=== PATIENT | male | born 1950 | race Caucasian/White ===

== ENCOUNTER 2021-06-07 09:21 | Emergency (ER) | payer MEDICARE, OTHER, SELFPAY ==
[2021-06-07 09:23] VITALS: BP 143/49; PULSE 54; RESP 16; TEMP 36.1; O2SAT 98; BMI 19.1
--- NOTE | 2021-06-07 09:58 | ED.VIS.LOWEX ---
HPI History of Present Illness Chief Complaint: Lower Extremity Injury Informant: patient Narrative Narrative: Patient's been having right knee pain for about 2 weeks. It started after he was working in the attic. He was crawling around on hands and knees. He tried to cushion the knee but it did not always work. He had no specific injury trauma or fall though. Since then he has had some swelling and discomfort. It is not red or hot. He has never had fevers or chills. He just felt a little bit lightheaded this morning but that was very transient. He feels fine now. It only occurred when he first got up and put weight on the knee. He has no chronic medical conditions and takes no routine medicines. He did take Tylenol which helped a bit. No recent infections. 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 He states crawling on his knees always bother them. No history documented of gout but he states sometimes he has had swollen uncomfortable big toes but has never had them evaluated. PFSH PFSH Home Medications naproxen 500 mg PO BID #14 tab 06/07/21 [Rx Last Taken Unknown] Allergy/AdvReac Type Severity Reaction Status Date / Time No Known Allergies Allergy Verified 06/07/21 09:21 ROS ROS ED Constitutional Constitutional ED: Denies chills, fever(s), subjective or sweats ENT ENT ED: Denies rhinorrhea Cardiovascular Cardiovascular: Denies chest pain Respiratory/Chest Respiratory/Chest: Denies cough Gastrointestinal Gastrointestinal: Denies nausea or vomiting Musculoskeletal Musculoskeletal: Reports arthralgias Integumentary Denies abscess, Abrasions or rash Neurologic Neurologic: Denies headache(s) Psychiatric Psychiatric: Denies depression Endocrine Endocrinology: Denies polydipsia or polyuria Hematologic/Lymphatic Hematologic/Lymphatic: Denies easy bleeding or easy bruising Allergic/Immunologic Allergic/Immunologic ED: Denies mouth swelling or urticaria EXAM Physical Exam Const Vital Signs: 06/07/21 09:23 06/07/21 10:01 Temperature 96.9 F L 96.9 F L Temperature Source Temporal Temporal Pulse Rate 54 L 54 L Respiratory Rate 16 16 Blood Pressure 143/49 H 143/49 H Blood Pressure Mean 80 80 Pulse Ox 98 98 Oxygen Delivery Method Room Air Room Air Positive well nourished and well developed General Appearance ED: well developed and NAD HEENT normocephalic Chest Wall inspection of chest normal Resp normal respiratory effort and clear to auscultation bilaterally Cardio regular rate and regular rhythm Extremity Extremity Narrative: There is a very small effusion of the right knee. But there is no warmth or erythema. I can put the knee through range of motion without any discomfort. There is no indication of infection whatsoever. Neuro oriented x3 Sensorium / Orientation: alert Skin no wounds Lesions: no lesions Rashes: no rashes Trauma: Negative for abrasion, laceration or puncture MDM MDM MDM Narrative Medical decision making narrative: X-ray shows diffuse arthritis. There is also indication of chondrocalcinosis small joint effusion that might be some indication of pseudogout. Clinically there is no indication of infection. He has a small effusion but there is no erythema warmth or pain with range of motion. I think this is likely a reactive arthritis. I do not think he needs the knee to be aspirated. I do not think antibiotics are indicated. X-rays show signs of chondrocalcinosis and stratus. This brings up the question of pseudogout. Again, I do not think this is infected. Even despite his discomfort he was able to run 10 miles this past week without difficulty. We will put him on a short course of Naprosyn. If he has any GI upset he should stop. If it is not better he might need steroid treatment. Again, this is not appropriate to do an aspiration at this time. He will follow up with his physicians. If he does get redness more swelling fevers or increasing pain he may need to return. I also printed off information about pseudogout from the Internet for the patient. Radiography Diagnostic Testing: Clinical Impression(s) from Imaging Studies Knee X-Ray 06/07/21 10:05 IMPRESSION: Osteopenia with mild tricompartmental arthrosis. Chondrocalcinosis. Small joint effusion. Electronically Signed: Chance Richey MD at 10:50 EST , Service support , Discharge Plan Triage Chief Complaint: Lower Extremity Injury ED Provider: Thai Loredo Dx/Rx/DC Orders Clinical Impression: Acute pain of right knee, Chondrocalcinosis articularis Instructions: ED Knee Pain of Uncertain Cause Prescriptions: New naproxen 500 MG tablet 500 mg PO BID Qty: 14 RF: 0 Primary Care Provider: Vinay Whittaker Referrals: Vinay Whittaker MD [Primary Care Provider] - 3-5 Days if not improving Disposition Disposition: Home, Self Care
[2021-06-07 10:01] VITALS: BP 143/49; PULSE 54; RESP 16; TEMP 36.1; O2SAT 98
--- NOTE | 2021-06-07 10:05 | RAD_ITS ---
STUDY: X-RAY - RIGHT KNEE REASON FOR EXAM: Male, 70 years old. Medial knee pain. No known injury. TECHNIQUE: 4 view(s) of the knee. COMPARISON: None. FINDINGS: Osteopenia. Mild medial compartmental arthrosis with small osteophytes. Mild lateral compartmental arthrosis. Mild arthrosis of the patellofemoral compartment without osteophytes. Chondrocalcinosis. Small joint effusion. RAD/Knee 4 or More Views IMPRESSION: Osteopenia with mild tricompartmental arthrosis. Chondrocalcinosis. Small joint effusion. Electronically Signed: Chance Richey MD at 10:50 EST , Service support ,
[2021-06-07 11:36] VITALS: BP 129/74; PULSE 62; RESP 15; O2SAT 98
== END 2021-06-07 11:40 | disposition home or self-care (01) ==
PROVIDERS: Emergency Provider Emergency Medicine; PCP Family Medicine
DX: M11.261 Other chondrocalcinosis, right knee (principal); M25.461 Effusion, right knee; M85.80 Other specified disorders of bone density and structure, unspecified site; Z79.1 Long term (current) use of non-steroidal anti-inflammatories (NSAID)
CPT/HCPCS: 73564; 99282

== ENCOUNTER → 2024-01-27 | Outpatient (CLI) | payer MEDICARE, OTHER, SELFPAY ==
--- NOTE | 2024-01-27 14:08 | VDLE_ITS ---
Reason For Study: RLE SWELLING RIGHT LEFT CFV is compressible, spontaneous, phasic, GSV is normal. competent and demonstrates normal CFV is compressible, spontaneous, phasic, augmentation. competent, and demonstrates normal Procedure augmentation. This is a venous duplex using B-mode, color FV is compressible, spontaneous, phasic, flow and spectral Doppler. competent and demonstrates normal Exam performed in department. augmentation. A preliminary report was called and/or faxed POP V is compressible, spontaneous, phasic, to Ally Brunner ORNAMENTER @ [phone] @ 14:45 competent and demonstrates normal pm. augmentation. Images # 17 through #23 are of the left pop T/P Trunk is compressible. fossa space. PTV is compressible. LT PerV is compressible. NONVASCULAR structure noted in the LEFT POP FOSSA SPACE measuring 5.48cm x 2.40cm in transverse. VL/Venous Duplex US, Unilateral Interpretation Summary There is no evidence of left lower extremity deep vein thrombosis. Left great s aphenous vein appears patent and compressible segmentally. 1.15 x 2.39 x 5.48 cm left popliteal space non vascular structure. This not a simple cyst. Clinical correlation would be appropriate. Normal flow patterns right common femoral vein Ordering Physician: Ally Brunner Referring Physician: Vinay Whittaker Performed By: Susanne Floyd, EL, RVT
== END | disposition home or self-care (01) ==
LOC: CVS 14:06
PROVIDERS: PCP Family Medicine; Referring Provider Nurse Practitioner Family; Visit Provider Nurse Practitioner Family
DX: M79.662 Pain in left lower leg (principal); M79.89 Other specified soft tissue disorders
CPT/HCPCS: 93971

== ENCOUNTER → 2025-04-09 | Outpatient (CLI) | payer MEDICARE, OTHER, SELFPAY ==
--- OUTSIDE RECORDS SUMMARY | 2024-08-16 12:55 | XMS RPT_ITS ---
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 RANGE REFERENCE UNITS LAB 2885-2(LOINC) Prot SerPl-mCnc 7.1 6.3-8.0 g/dL LAB 1751-7(LOINC) Albumin SerPl-mCnc 3.9 3.9-4.9 g/dL LAB 35840-5(LOINC) Calcium SerPl-mCnc 8.9 8.5-10.2 mg/dL LAB 1975-2(LOINC) Bilirub SerPl-mCnc 0.6 0.2-1.3 mg/dL LAB 6768-6(LOINC) ALP SerPl-cCnc 117 High 38-113 U/L LAB 1920-8(LOINC) AST SerPl-cCnc 20 14-40 U/L LAB 1742-6(LOINC) ALT SerPl-cCnc 14 10-54 U/L LAB 2345-7(LOINC) Glucose SerPl-mCnc 88 74-99 mg/dL Result Comment: The [place] [employer] (ADA) provides guidance for cutoff values for fasting glucose and random glucose. The ADA defines fasting as no caloric intake for at least 8 hours. Fasting plasma glucose results between 100 to 125 mg/dL indicate increased risk for diabetes (prediabetes). Fasting plasma glucose results greater than or equal to 126 mg/dL meet the criteria for diagnosis of diabetes. In the absence of unequivocal hyperglycemia, results should be confirmed by repeat testing. In a patient with classic symptoms of hyperglycemia or hyperglycemic crisis, random plasma glucose results greater than or equal to 200 mg/dL meet the criteria for diagnosis of diabetes. Reference: Standards of Medical Care in Diabetes 2016, [place] [employer]. Diabetes Care. 2016.39(Suppl 1). LAB 3094-0(LOINC) BUN SerPl-mCnc 18 9-24 mg/ dL LAB 2160-0(LOINC) Creat SerPl-mCnc 0.92 0.73-1.22 mg/dL LAB 2951-2(LOINC) Sodium SerPl-sCnc 137 136-144 mmol/L LAB 2823-3(LOINC) Potassium SerPl-sCnc 4.3 3.7-5.1 mmol/L LAB 2075-0(LOINC) Chloride SerPl-sCnc 101 98-107 mmol/L LAB 2028-9(LOINC) CO2 SerPl-sCnc 28 22-30 mmo l/L LAB 08914-6(LOINC) Anion Gap SerPl-sCnc 8 8-15 mmol/L LAB 98856-0(LOINC) Creatinine + eGFR Pnl SerPlBld 88 >=60 mL/min/1 .73m??? Result Comment: Estimated Gl omerular Filtration Rate (eGFR) is calculated using the 2020 CKD-EPI creatinine equation. This equation utilizes serum creatinine, sex, and age as parameters. The creatinine assay has traceable calibration to isotope dilution-mass spectrometry. Refer to KDIGO guidelines for clinical interpretation. In patients with unstable renal function, e.g. those with acute kidney injury, the eGFR may not accurately reflect actual GFR. Performed By: #### 87395-3, 43590-7 #### [facility] CLIA [id number] [address] [place] [address] [place] LIPID 1996 PNL SERPL Collected: 024 8:33 AM Status: F Source: [facility] Order Comment: Specimen Type : BLOOD SPECIMEN Ordering Facility: [facility] Address: [address] [place] [address] TYPE CODE TESTS RESULT OUT OF RANGE REFERENCE UNITS LAB 2093-3(LOINC) Cholest SerPl-mCnc 179 <200 mg/dL Result Comment: <200 mg/dL, Desirable 200-239 mg/dL, Borderline high >239 mg/dL, High LAB 2571-8(LOINC) Trigl SerPl-mCnc 59 <150 mg/dL Result Comment: <150 mg/dL, Normal 150-199 mg/dL, Borderline high 200-499 mg/dL, High >499 mg/dL, Very high LAB 2085-9(LOINC) HDLc SerPl-mCnc 56 >39 mg/dL Result Comment: 40-59 mg/dL, Acceptable >59 mg/dL, High: Negative risk factor for coronary heart disease <40 mg/dL, Low: Positive risk factor for coronary heart disease LAB 71955-5(LOINC) NonHDLc SerPl-mCnc 123 <130 mg/dL Result Comment: <130 mg/dL, Optimal 130-159 mg/dL, Near optimal/above optimal 160-189 mg/dL, Borderline high 190-219 mg/dL, High >219 mg/dL, Very high Secondary prevention optimal non HDL Cholesterol levels are recommended to be <100 mg/dL LAB FT FASTING TIME 12 hrs LAB 35635-3(LOINC) VLDLc SerPl Calc-mCnc 12 <30 mg/dL LAB 9830-1(LOINC) Cholest/HDLc SerPl 3.20 <5.10 LAB 2089-1(LOINC) LDLc SerPl-mCnc 111 High <100 mg/dL Result Comment: <100 mg/dL, Optimal 100-129 mg/dL, Near optimal/above optimal 130-159 mg/dL, Borderline high 160-189 mg/dL, High >189 mg/dL, Very high Secondary prevention optimal LDL Cholesterol levels are recommended to be < 70 mg/dL LAB 59546-8(LOINC) LDLc/HDLc SerPl 1.98 <2.54 Result Comment: Reference: 1. National Cholesterol Education Program ATP III Guideline At-A-Glance Quick Desk Reference: National Heart, Lung, and Blood [place]. National Institutes of Health. 2001: NIH Publication No. 01-3305. 2. An International Atherosclerosis Society position paper: global recommendations for the management of dyslipidemia: executive summary, Atherosclerosis. 2014: 232(2):410-413. Performed By: #### 84198-2, 56884-3 #### [facility] CLIA [id number] [address] [place] [address] [place] CNPN Observed: 05/21/2024 12:00 AM Status: COMPLETED Source: [facility] Telephone (FAMPWS) CRUZ PACKER ([id number]) 1950 Date Time Provider Department 05/21/24 STACEY KARIMI During your visit today, we recorded the following information about you: Balbina Mckee LPN 05/21/2024 10:08 AM Signed calling to see if pt needs blood work done before apt 05/31/24. Please advise . TERE Bellamy Mark D, MD 05/21/2024 12:45 PM Signed Labs ordered . MD Sergei Andino M Robin, RN 05/21/2024 1:33 PM Signed Notified and agreeable. Allergies As of Date: 05/21/2024 (No Known Allergies) Date Reviewed: 03/14/2024 Reviewed by: Elmo Adams MD - Fully Assessed Reason for Visit: requesting labs [Other] Primary Visit Diagnosis:Wellness examination [Z00.00] Other Visit Diagnosis:Screening for lipid disorders [Z13.220] Order(s):COMPREHENSIVE METABOLIC PANEL [SQCMP] Order #: [id number] FUTURE COMPLETE BLOOD COUNT [SQCBC] Order #: [id number] FUTURE LIPID PANEL BASIC [SQLIPB] Order #: [id number] FUTURE Prescriptions as of 05/21/2024 - acetaminophen (TYLENOL) 500 mg tablet Take 500 mg by mouth as needed for Headache. Meds Comments as of 02/28/2018: Local [facility] - [facility] Problem List As Of Date 05/21/2024 Noted Resolved Well adult exam [Z00.00] 06/12/2013 Abnormal CXR [R93.89] Encounter Status:Closed by Janee OLIVEIRA on 05/21/24 ALLERGIES DATE TYPE / CODE NAME / CODE REACTION SEVERITY SOURCE Drug Class/345835749(SNO MED CT) NO KNOWN ALLERGIES [facility] ENCOUNTERS ADMIT/DISCHARGE ACCOUNT NUMBER ADMITTING ENCOUNTER CLASS LOCATION SOURCE 08/16/2024/ 5 [id number] Ambulatory Building:[facility] D [facility] 08/16/2024/ 5 [id number] Ambulatory Building:BLCL [facility] 08/16/2024/ 5 [id number] Ambulatory Building:PFT [facility] 05/31/2024/ 4 [id number] Ambulatory [facility] ing[facility] 05/23/2024/ 4 [id number] [facility] PAYERS ENCOUNTER GUARANTOR PAYER SUBSCRIBER SOURCE 08/16/2024 DEPT OF LABORDOB: [id number] [address]Rlj: () Primary Insurance[facility] Number: [id number] Date: CRUZ YUNG: [id number] [address] [address]Vyr: (HP) (WP) [facility] 08/16/2024 DEPT OF LABORDOB: [id number] [address]Diz: (HP) Primary Insurance[facility] Number: [id number] Date: CRUZ YUNG: [id number] [address] [address]Jlf: (HP) (WP) [facility] 08/16/2024 DEPT OF LABORDOB: [id number] [address]Ofp: (HP) Primary Insurance:[facility] LAB[facility]Policy Number: [id number] Date: CRUZ YUNG: [id number] [address] [place], [place] [address]Tel: () () [facility] 05/31/2024 Primary Insurance:MEDICARE A AND BPolicy Number: [id number] Date:5163-74-97Xruv Name:Linette MARTINOB: [id number] [address] 05/31/2024 Secondary Insura nce:MMO MEDICARE SUPPLEMENTPolicy Number: [id number] Date:6370-89-13Xucc Name:Chidi YUNG: [id number] [address] 05/23/2024 Primary Insurance:MEDICARE A AND BPolicy Number: [id number] Date:9616-79-85Vpzv Name:Linette YUNG: [id number] [address] 05/23/2024 Secondary Insura nce:MMO MEDICARE SUPPLEMENTPolicy Number: [id number] Date:0844-66-74Olet Name:Chidi YUNG: [id number] [address]
== END | disposition home or self-care (01) ==
LOC: PSN 10:52
PROVIDERS: PCP Family Medicine; Referring Provider Internal Medicine Cardiovascular Disease; Visit Provider Internal Medicine Cardiovascular Disease
DX: R94.31 Abnormal electrocardiogram [ECG] [EKG] (principal)
CPT/HCPCS: 93225; 93226

== ENCOUNTER → 2025-04-23 | Outpatient (CLI) | payer MEDICARE, OTHER, SELFPAY ==
--- NOTE | 2025-04-23 09:31 | STEWCON_ITS ---
Reason For Study Reason For Study: ARRHYTHMIA Stress Results Protocol: Maynor Protocol WITH DEFINITY Maximum Predicted HR: 147 bpm Target HR: 125 bpm % Maximum Predicted HR: 97 % DurationHeart Rate Stage (mm:ss) (bpm) BP Comment BASELINE 53 162/82 STAGE 1 3:00 90 138/82 STAGE 2 3:00 123 144/80 STAGE 3 2:15 142 164/782 CC DEFINITY FOR ENTIRE TEST RECOVERY 62 134/76 Stress Duration: 8:15 mm:ss Maximum Stress HR: 142 bpm Baseline Echocardiogram Findings Stress Echo Wall motion Data Resting WM Intermediate WM Stress WM ECHO/Stress Test Echo W/Contrast Interpretation Summary Exercise stress echocardiogram. 74-year-old man with a history of arrhythmias. Resting EKG demonstrates sinus bradycardia with a rate of 53 bpm resting blood pressure is 162/82 mmHg. The patient exercised according to the Maynor protocol for total duration of 8 minutes and 1 5 seconds. The maximum heart rate attained was 144 bpm which was 97% of max impacted heart rate the maximum workl oad was 10.1 metabolic equivalents. At rest there were no ST or T wave changes noted suggest ischemia. During exercise there was a long period of ventricular bigeminy noted at peak exercise occasional ventricular couplet was also present . 1 episode of ventricular triplets was noted. No ST changes were noted suggest ischemia the test was terminated due to significant arrhythmias. The peak blood pressure was 182/80 mmHg which was a normal blood pressure response to exercise . Stress echocardiogram. The resting echocardiogram demonstrated an ejection frac tion of approximately 50%. At peak exercise it appeared that the ventricular cavity dilated mildly initially befor e returning to normal. The ejection fraction fell to approximately 45% before recovering back to normal. Conclusion: Abnormal exercise stress echo with abnormal EKG findings noted with ventricular bigeminy. Stress echocardiogram with abnormal ventricular response to exercise. Ordering Physician: Francisco Álvarez Referring Physician: Francisco Álvarez Performed By: Radha Vallejo RDCS
== END | disposition home or self-care (01) ==
LOC: CVS 09:26
PROVIDERS: PCP Family Medicine; Referring Provider Internal Medicine Cardiovascular Disease; Visit Provider Internal Medicine Cardiovascular Disease
DX: R94.31 Abnormal electrocardiogram [ECG] [EKG] (principal)
CPT/HCPCS: 93017; 93350; Q9957; A4216; C8928

== ENCOUNTER → 2025-05-20 | Outpatient (CLI) | payer MEDICARE, OTHER, SELFPAY ==
--- NOTE | 2025-05-20 14:45 | RAD_ITS ---
PROCEDURE: CHEST PA AND LATERAL 05/20/2025 REASON FOR EXAM: PREPROCEDURAL, SHORTNESS OF BREATH TECHNIQUE: Procedure Code: RADCXR Modality: DX Procedure: CHEST PA AND LATERAL FINDINGS: No focal consolidation. No pleural effusion or pneumothorax. Cardiac silhouette is within normal limits. No acute fractures. RAD/Chest PA and Lateral IMPRESSION: No focal consolidations. Reading Location: [facility]
[2025-05-20 15:26] LABS: Hematocrit 41.7 % (40-54); Hemoglobin 14.1 g/dL (13.0-16.5); Immature Granulocytes Count 0.020 X10^3/uL (0.0-0.0); Mean Corp Hgb Conc 33.8 g/dL (32-36); Mean Corpuscular Volume 93.3 fL (80-94); Mean Platelet Vol. 11.3 fl (6.2-12.0); NRBC Flagged by Analyzer 0 % (0-5); Platelet Count 206 K/mm3 (150-450); RBC Distribution Width CV 13.3 % (11.6-14.6); RBC Distribution Width SD 45.5 fl (35.1-43.9); Red Blood Count 4.47 M/mm3 (4.6-6.2); White Blood Count 6.6 K/mm3 (4.4-11.0)
[2025-05-20 15:48] LABS: Prothrombin Time (Protime)PT. 12.9 SECONDS (11.7-14.9)
[2025-05-20 15:59] LABS: Anion Gap 8 (5-15); BUN 17 mg/dL (4-19); BUN/Creat Ratio 18.9 RATIO (10-20); Calcium,Total 8.7 mg/dL (7.6-11.0); Carbon Dioxide 27.5 mmol/L (21.0-32.0); Chloride 103 mmol/L (98-108); Glucose 97 mg/dL (70-99); Potassium 4.4 mmol/L (3.3-5.1)
--- OUTSIDE RECORDS SUMMARY | 2025-05-20 18:40 | XMS RPT_ITS | CCD ---
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 polyuria, polydipsia and goiter NEURO: No history of headaches, syncope, paralysis, seizures or tremors MOOD: Negative for depression, anxiety, or suicidal ideation. EXAM: BP 140/82 Pulse 66 Resp 16 Wt 61.7 kg (136 lb) SpO2 97% BMI 18.97 kg/m? PHYSICAL EXAM: General Appearance: Well appearing, alert, in no acute distress, well-hydrated, well nourished. Skin: Skin color, texture, turgor normal, no suspicious rashes or lesions. Head: Normocephalic, no masses, lesions, tenderness or abnormalities. Eyes: Anicteric sclera. Extraocular movements are intact. Lungs: Lungs clear to auscultation. No wheezing, rhonchi, rales. Heart: RRR without murmur, gallop, or rubs. No ectopy. Extremities: +2 pitting edema noted In the left lower leg, no color change noted. Calf tender with palpation. Leon is shiny due to edema, Left calf: 38 cm Right Calf: 34 cm. Positive Jimmy's sign. Ankle swollen, mild tenderness, full ROM. Musculoskeletal: See above. Peripheral Pulses: Normal, Capillary refill <2secs, strong peripheral pulses, Pulses palpable. Neurologic: Gait normal. Reflexes normal and symmetric. Sensation grossly intact. ASSESSMENT/PLAN: 1. Pain of left calf - ICD9: 729.5, ICD10: M79.662 (primary diagnosis) - Cannot rule out a DVT, will get stat US at [facility]. - Red flag symptoms given to patient, verbalizes understanding when to seek emergency care. - US LEG VEIN DVT [facility] 2. Swelling of calf - ICD9: 729.81, ICD10: M79.89 - Same plan as #1. 3. Acute left ankle pain - ICD9: 719.47, ICD10: M25.572 - Continue supportive care at home Follow up pending test results or sooner as needed. Discussed treatment plan and patient voices understanding. Patient's questions answered appropriately. Medications and potential side effects were discussed and patient voices understanding. Ally Brunner APRN.ADMITTING CLERK This note was partially generated using Helv[employer] voice recognition system. Note was reviewed for accuracy. There may be minor misspellings or grammar miscues with [employer] voice recognition. Ally Brunner APRN.CNP 01/27/2024 11:36 AM Addendum Appointment made for ultrasound at [facility] at 2:00 Red flag symptoms, increase in pain, shortness of breath, or chest pain go to ER Follow up pending test results. Allergies As of Date: 01/27/2024 (No Known Allergies) Date Reviewed: 01/27/2024 Reviewed by: Salud Chan LPN - Fully Asse (more content not included)... Normal [facility] Vital Signs Date Time Vital Sign Value Performing Clinician Facility 03-27-2025 10:32-0400 Body height 177.[address] Stacey Karimi MD Work Phone: [facility] 03-27-2025 10:32-0400 Body mass index (BMI) [Ratio] 19.2 kg/m2 Dr. Stacey Karimi MD Work Phone: [facility] 03-27-2025 10:32-0400 Body weight 60.[address] Stacey Karimi MD Work Phone: [facility] 03-27-2025 10:32-0400 Diastolic blood pressure 72 mm[Hg] Dr. Stacey Karimi MD Work Phone: [facility] 03-27-2025 10:32-0400 Heart rate 46 /min Dr. Stacey Karimi MD Work Phone: [facility] 03-27-2025 10:32-0400 Respiratory rate 16 /min Dr. Stacey Karimi MD Work Phone: [facility] 03-27-2025 10:32-0400 Systolic blood pressure 137 mm[Hg] Dr. Stacey Karimi MD Work Phone: [facility] 08-16-2024 11:31-0500 Diastolic blood pressure 68 mm[Hg] Rich Genao DO Work Phone: [facility] 08-16-2024 11:31-0500 Heart rate 66 /min Rich Genao DO Work Phone: [facility] 08-16-2024 11:31-0500 Systolic blood pressure 122 mm[Hg] Rich Genao DO Work Phone: [facility] 05-31-2024 11:24-0500 Body height 179.1 cm Stacey Karimi MD Work Phone: [facility] 05-31-2024 11:24-0500 Body mass index (BMI) [Ratio] 19.05 kg/m2 Stacey Karimi MD Work Phone: [facility] 05-31-2024 11:24-0500 Body weight 61.1 kg Stacey Karimi MD Work Phone: [facility] 05-31-2024 11:24-0500 Diastolic blood pressure 80 mm[Hg] Stacey Karimi MD Work Phone: [facility] 05-31-2024 11:24-0500 Heart rate 68 /min Stacey Karimi MD Work Phone: [facility] 05-31-2024 11:24-0500 Respiratory rate 16 /min Stacey Karimi MD Work Phone: [facility] 05-31-2024 11:24-0500 Systolic blood pressure 128 mm[Hg] Stacey Karimi MD Work Phone: [facility] 01-27-2024 11:08-0400 Body mass index (BMI) [Ratio] 18.97 kg/m2 Ally Brunner HORSE DOCTOR.ADMITTING CLERK Work Phone: [facility] 01-27-2024 11:08-0400 Body weight 61.69 kg Ally Brunner HORSE DOCTOR.ADMITTING CLERK Work Phone: [facility] 01-27-2024 11:08-0400 Diastolic blood pressure 82 mm[Hg] Ally Brunner HORSE DOCTOR.ADMITTING CLERK Work Phone: [facility] 01-27-2024 11:08-0400 Heart rate 66 /min Ally Brunner HORSE DOCTOR.ADMITTING CLERK Work Phone: [facility] 01-27-2024 11:08-0400 Respiratory rate 16 /min Ally Brunner HORSE DOCTOR.ADMITTING CLERK Work Phone: [facility] 01-27-2024 11:08-0400 SaO2% (BldA) [Mass fraction] 97 % Ally Brunner HORSE DOCTOR.ADMITTING CLERK Work Phone: [facility] 01-27-2024 11:08-0400 Systolic blood pressure 140 mm[Hg] Ally Brunner HORSE DOCTOR.ADMITTING CLERK Work Phone: [facility] 11-18-2021 13:05-0400 Body height 180.3 cm Stacey Karimi MD Work Phone: [facility] 11-18-2021 13:05-0400 Body weight 61.24 kg Stacey Karimi MD Work Phone: [facility] 11-18-2021 13:05-0400 Diastolic blood pressure 66 mm[Hg] Stacey Karimi MD Work Phone: [facility] 11-18-2021 13:05-0400 Heart rate 60 /min Stacey Karimi MD Work Phone: [facility] 11-18-2021 13:05-0400 Respiratory rate 16 /min Stacey Karimi MD Work Phone: [facility] 11-18-2021 13:05-0400 Systolic blood pressure 124 mm[Hg] Stacey Karimi MD Work Phone: [facility] Encounters Encounter Date Encounter Type Care Provider Facility Start: 05-27-2025 ambulatory Eugene Preeti Facility:[facility] Start: [facility] [place] Start: 04-23-2025 End: 04-23-2025 ambulatory Eugene Preeti Facility:[facility] Start: 04-09-2025 Non-patient / Non-visit Dr. Jose RODGERS -[facility] Work Phone: Start: 04-09-2025 End: 04-09-[address] Stacey Karimi MD Work Phone: -Pulmonary Services/Neurology Start: 04-09-2025 End: 04-09-[address] Francisco Álvarez MD -Pulmonary Services/Neurology Work Phone: Start: 04-09-2025 End: 04-09-2025 ambulatory Francisco Álvarez Facility:[facility] Start: 03-27-2025 End: 03-27-[address] Francisco Álvarez MD -[facility] Work Phone: Start: 03-27-2025 End: 03-27-[address] Stacey Karimi MD Work Phone: -[facility] Start: 08-16-2024 End: 08-16-2024 ambulatory RICH BIRGIT [facility] Start: 08-16-2024 End: 08-16-2024 Subsequent hospital visit by physician Rich Genao DO Work Phone: [facility] Comment on above: Dyspnea, unspecified type; Encounter for disability determination Start: 08-16-2024 End: 08-16-2024 Work related/med dblt xm oth/thn treating phys Rich Genao DO Work Phone: [facility] Comment on above: Dyspnea, unspecified type (Primary Dx); Encounter for disability determination; Joint pain Start: 08-16-2024 End: 08-16-2024 ambulatory STACEY KARIMI [facility] Start: 08-16-2024 End: 08-16-2024 Subsequent hospital visit by physician Rich Genao DO Work Phone: [facility] Comment on above: Dyspnea, unspecified type; Encounter for disability determination Start: 07-05-2024 End: 07-05-2024 Telephone encounter Stacey Karimi MD Work Phone: [facility] Comment on above: Results Start: 05-31-2024 End: 05-31-2024 Patient encounter procedure Stacey Karimi MD Work Phone: [facility] Comment on above: Screening for depres shivam (Primary Dx); Encounter for screening examination for other mental health and behavioral disorders; Screening for colon cancer; Medicare annual wellness visit, subsequent; Skin lesion Start: 05-31-2024 End: 05-31-2024 ambulatory STACEY KARIMI Facility:[facility] Start: 05-23-2024 End: 05-23-2024 ambulatory STACEY KARIMI Facility:[facility] Start: 05-23-2024 Encounter for genera l adult medical examination without abnormal findings STACEY KARIMI [facility] Start: 05-21-2024 End: 05-21-2024 Patient encounter status Stacey Karimi MD Work Phone: [facility] Work Phone: Start: 05-21-2024 End: 05-21-2024 Telephone encounter Stacey Karimi MD Work Phone: [facility] Comment on above: requesting labs Start: 02-14-2024 End: 02-14-2024 Patient encounter procedure Elmo Bowles MD Work Phone: Orthopaedics Comment on above: Synovial cyst of lef t popliteal space Start: 02-14-2024 End: 02-14-2024 ambulatory ELMO BOWLES Facility:[facility] Start: 02-14-2024 End: 02-14-2024 Subsequent hospital visit by physician Radio Kothari Pamela Yayo Work Phone: Radiology Comment on above: Left knee pain, unsp ecified chronicity [M25.562] Start: 02-10-2024 Orders Only Elmo Bowles MD Work Phone: Orthopaedics Comment on above: Left knee pain, unsp ecified chronicity (Primary Dx) Start: 02-01-2024 Telephone encounter Ally Hernandez nhof HORSE DOCTOR.ADMITTING CLERK Work Phone: [facility] Comment on above: Orders Start: 01-30-2024 Telephone encounter Ally inmanof HORSE DOCTOR.ADMITTING CLERK Work Phone: [facility] [place] Comment on above: Results (US DVT ) Start: 01-27-2024 End: 01-27-2024 ambulatory Stacey Karimi MD Work Phone: [facility] [place] Comment on above: Left Leg swelling Start: 01-27-2024 End: 01-27-2024 Patient encounter procedure Ally Brunner HORSE DOCTOR.ADMITTING CLERK Work Phone: [facility] [place] Comment on above: Pain of left calf (P rimary Dx); Swelling of calf; Acute left ankle pain Start: 01-20-2023 [facility]ulatory [facility] [place] Comment on above: Population Health Na vigation Outreach ([facility]) Start: 11-18-2021 End: 11-18-2021 Patient encounter procedure Stacey Karimi MD Work Phone: [facility] [place] Comment on above: Medicare annual well ness visit, subsequent (Primary Dx) Start: 02-15-2017 End: 02-16-2017 Ambulatory RICH [facility] Start: 02-15-2017 End: 02-15-2017 Ambulatory STACEY KARIMI [facility] Start: 06-12-2013 Patient encounter status Stacey Karimi MD Work Phone: [facility] Work Phone: Procedures Date Procedure Procedure Detail Performing Clinician Start: 08-16-2024 Radiologic exam ches t single view Rich Genao DO Work Phone: Start: 08-16-2024 Blood gases any combination ph pco2 po2 co2 hco3 iRch Genao DO Work Phone: Start: 08-16-2024 Ecg routine ecg w/le ast 12 lds trcg only w/o i&r Rich Genao DO Work Phone: Start: 08-16-2024 EXERCISE ABG Rich gibbs DO Work Phone: Start: 08-16-2024 Blood gases any combination ph pco2 po2 co2 hco3 Rich Genao DO Work Phone: Start: 08-16-2024 Brncdilat rspse spmt ry pre&post-brncdilat admn Rich Genao DO Work Phone: Start: 08-16-2024 ABG (DRAW AND ANALYZE) Rich Genao DO Work Phone: Start: 05-31-2024 Adult depression scr eening assessment Stacey Karimi MD Work Phone: Start: 05-23-2024 Lipid 1996 panel - S yeison or Plasma Stacey Karimi MD Work Phone: Start: 02-14-2024 Radiologic exam knee complete 4/more views Elmo Bowles MD Work Phone: Start: 11-18-2021 Adult depression scr eening assessment Stacey Karimi MD Work Phone: Start: 11-13-2021 Lipid 1996 panel - S yeison or Plasma Stacey Karimi MD Work Phone: Start: 04-14-2012 Colonoscopy Stacey tran MD Work Phone: Plan of Treatment Date Care Activity Detail Author Start: 05-23-2029 Lipid panel Lipid Screening [facility] Start: 06-25-2027 Screening for malign ant neoplasm of colon Cologuard (FIT-DNA) [facility] Start: 05-23-2027 Diabetes Screening Diabetes Screenin g [facility] Start: 11-13-2026 Lipid panel Lipid Screening [facility] Start: 11-13-2026 LIPID SCREEN LIPID SCREEN [facility] Start: 09-10-2026 RSV Vaccine (1 - 1-d ose 75+ series) RSV Vaccine (1 - 1-dose 75+ series) [facility] Start: 06-04-2025 End: 06-04-2025 Patient encounter procedure 06/04/2025 1:20 PM EST Office Visit [facility] [place] [address] [place], [place] [id number] Stacey Karimi MD [address] [place] [address] medicare wellness [facility] [place] Comment on above: medicare wellness Start: 05-31-2025 Anxiety Screening Anxiety Screening [facility] Start: 05-31-2025 Covid-19 Vaccine () Covid-19 Vaccine () [facility] Comment on above: Postponed from 03/11 (Declined at this time) Start: 05-31-2025 Depression Screening Depression Scre ening [facility] Start: 04-23-2025 Non-patient / Non-visit Non-patient / Non-visit -[facility] Start: 04-23-2025 Patient encounter procedure Registered Clinical -Cardiovascular Services Work Phone: Start: 03-27-2025 End: 03-27-2025 Evaluation of diagnostic study results [facility] Start: 01-07-2025 Influenza vaccination Influenza Vacc ine (#1) [facility] Comment on above: Postponed from 03/11 (Declined at this time) Start: 11-13-2024 DIABETES SCREEN DIABETES SCREEN [facility] Start: 11-13-2024 Diabetes Screening Diabetes Screenin g [facility] Start: 06-26-2024 Screening for malign ant neoplasm of colon Colorectal Cancer Screening [facility] Start: 05-31-2024 End: 05-31-2024 Patient encounter procedure 05/31/2024 1:20 PM EST Office Visit [facility] [place] [address] [place], [place] [id number] Stacey Karimi MD [address] [facility] [place] [id number] physical [facility] [place] Comment on above: physical Start: 05-21-2024 End: 08-20-2024 CBC panel - Blood by Automated count COMPLETE BLOOD COUNT Lab Routine Wellness examination Expected: 05/21/2024, Expires: 08/20/2024 [facility] Comment on above: Expected: 05/21/2024 , Expires: 08/20/2024 Start: 05-21-2024 End: 08-20-2024 Comprehensive metabolic 2000 panel - Serum or Plasma COMPREHENSIVE METABOLIC PANEL Lab Routine Wellness examination Expected: 05/21/2024 (Approximate), Expires: 08/20/2024 [facility] Work Phone: Comment on above: Expected: 05/21/2024 (Approximate), Expires: 08/20/2024 Start: 05-21-2024 End: 08-20-2024 Lipid 1996 panel - Serum or Plasma LIPID PANEL BASIC Lab Routine Wellness examination Screening for lipid disorders Expected: 05/21/2024, Expires: 08/20/2024 [facility] Comment on above: Expected: 05/21/2024 , Expires: 08/20/2024 Start: 03-11-2024 Covid-19 Vaccine ( season) Covid-19 Vaccine ( season) [facility] Start: 03-11-2024 Covid-19 Vaccine ( season) Covid-19 Vaccine ( season) [facility] Start: 03-11-2024 Influenza vaccination Influenza Vacc ine (#1) [facility] Start: 03-11-2024 Influenza vaccinatio n given INFLUENZA VACCINE (#1) [facility] Start: 02-14-2024 End: 02-14-2024 Patient encounter procedure Orthopaedics Comment on above: Synovial cyst L knee. Start: 02-03-2024 End: 02-03-2024 Patient encounter procedure 02/03/2024 2:30 PM EDT Office Visit General Surgery [address] [place], [place] [id number] Luis Armando Wharton MD [address] [place] [address] Synovial cyst of left popliteal space [M71.22] General Surgery Comment on above: Synovial cyst of lef t popliteal space [M71.22] Start: 07-11-2023 Advance Directive Discussion Advance Directive Discussion [facility] Start: 07-11-2023 Behavioral Health Screening Behavioral Health Screening [facility] Start: 03-11-2023 Covid-19 Vaccine ( season) Covid-19 Vaccine ( season) [facility] Start: 03-11-2023 Influenza vaccination INFLUENZA (#1) [facility] Start: 07-11-2022 ADVANCE DIRECTIVE DISCUSSION ADVANCE DIRECTIVE DISCUSSION [facility] Start: 07-11-2022 DEPRESSION ASSESSMENT DEPRESSION ASS ESSMENT [facility] Start: 04-14-2022 Colonoscopy COLONOSCOPY [facility] Start: 04-14-2022 COLORECTAL CANCER SCREENING COLORECTAL CANCER SCREENING [facility] Start: 04-14-2022 Screening for malign ant neoplasm of colon [facility] Start: 03-11-2022 Influenza vaccination INFLUENZ A (Season Ended) [facility] Start: 02-16-2022 Urine microalbumin profile [facility] Start: 11-17-2021 Adult depression screening assessment DEPRESSION SCREENING [facility] Start: 07-11-2021 ADVANCE DIRECTIVE DISCUSSION ADVANCE DIRECTIVE DISCUSSION [facility] Start: 09-10-2016 Fall risk assessment FALL RISK [facility] Start: 09-10-2016 Glaucoma screening GLAUCOMA/EY E EXAM AGE 65+ [facility] Start: 09-10-2016 Pneumococcal 23-uriel nt polysaccharide vaccination given (situation) PNEUMOCOCCAL VACCINE: 65+ YEARS (1 of 1 - PCV) [facility] Start: 2011 RSV Vaccine (1 - 1-d ose 60+ series) RSV Vaccine (1 - 1-dose 60+ series) [facility] Start: 09-10-2001 SHINGRIX VACCINE (1 of 2) SHINGRIX VACCINE (1 of 2) [facility] Start: 09-10-2001 Zoster vaccine hzv l tino for subcutaneous use ZOSTER (SHINGLES) VACCINE (1 of 2) [facility] Start: 09-10-1996 COLOGUARD (FIT-DNA) COLOGUARD (FIT-D NA) [facility] Start: 09-10-[address] COLONOGRAPHY [facility] Start: 09-10-1996 FECAL OCCULT BLOOD FECAL OCCULT BLOO D [facility] Start: 09-10-1996 Screening for malign ant neoplasm of colon [facility] Start: 09-10-1996 SIG[facility]OSCOPY [facility] Start: 09-10-1986 Fasting lipid profile LIPID SCREENIN G [facility] Start: 09-10-1969 ANNUAL WELLNESS VISIT ANNUAL WELLNES S VISIT [facility] Start: 09-10-1969 Anxiety Screening Anxiety Screening [facility] Start: 09-10-1969 Depression Screening Depression Scre ening [facility] Start: 1963 Depression screening using PHQ-9 (Patient Health Questionnaire 9) score DEPRESSION SCREENING [facility] Start: 09-10-1962 Administration of diphtheria + tetanus + acellular pertussis vaccine DTAP/TDAP/TD VACCINE (1 - Tdap) [facility] Start: 09-10-1956 COVID-19 VACCINE (#1) COVID-19 VACCI NE (#1) [facility] Start: 03-13-1952 COVID-19 VACCINE (#1) COVID-19 VACCI NE (#1) [facility] Start: 1950 Hepatitis C screening HEPATITIS C SC REENING [facility] COLOGUARD COLOGUARD Lab Ro utine Screening for colon cancer Ordered: 05/31/2024 [facility] Work Phone: Comment on above: Ordered: 05/31/2024 End: 01-26-2025 US Lower extremity veins - bilateral US LEG VEIN DVT [facility] Lab STAT Pain of left calf Swelling of calf 1 Occurrences starting 01/27/2024 until 01/26/2025 [facility] Work Phone: Comment on above: 1 Occurrences starti ng 01/27/2024 until 01/26/2025 End: 03-11-2025 XR Knee - left 4 Views XR KNEE GENERAL 4V AP BOTH/PA BOTH/LAT/MERC LEFT Radiology Routine Left knee pain, unspecified chronicity 1 Occurrences starting 02/10/2024 until 03/11/2025 [facility] Work Phone: Comment on above: 1 Occurrences starti ng 02/10/2024 until 03/11/2025 Immunizations Immunization Date Immunization Notes Care Provider Fa cility 03-29-2019 pneumococcal polysaccharide vaccine, 23 valent Stacey Karimi MD Work Phone: [facility] 02-28-2018 pneumococcal conjuga te vaccine, 13 valent Stacey Karimi MD Work Phone: [facility] 09-30-2016 influenza virus vacc ine, unspecified formulation Stacey Karimi MD Work Phone: [facility] 02-17-2012 tetanus toxoid, redu kristan diphtheria toxoid, and acellular pertussis vaccine, adsorbed Stacey Karimi MD Work Phone: [facility] 10-13-1959 Chicken Pox (disease) Stacey corbett MD Work Phone: [facility] Work Phone: Payers Date Payer Category Payer Self-pay 2024 Federal, State, Loca l (unspecified) [employer] [address] [place] [address] [id number] 2020 Unknown MMO MMO MEDICARE SUPPLEMENT [id number] 2020-Present [phone] [address] [place] [address] Indemnity [id number] 2020 Unknown MMO MMO MEDICARE SUPPLEMENT [id number] 2020-Present [phone] [address] [place] [address] Indemnity [id number] 2020 Medicare [id number] 2016 Medicare MEDICARE MEDICAR E A AND B [id number] 2016-Present [phone] [address] [address] [place] [address] Medicare [id number] 2016 Medicare MEDICARE MEDICAR E A AND B [id number] 2016-Present [phone] [place] [address] Medicare [id number] 2016 Medicare [id number] Unknown [id number] Unknown [id number] Unknown [id number] Unknown [id number] Unknown [id number] Unknown [id number] Unknown [id number] Unknown [id number] 462 Unknown [id number] Social History Date Type Detail Facility Start: 02-17-2012 End: 02-25-2025 Tobacco smoking status NHIS Never smoked tobacco [facility] Work Phone: Start: 02-17-2012 End: 08-16-2024 Tobacco use and exposure Smokeless tobacco non-user [facility] Work Phone: Start: 11-18-2021 End: 08-16-2024 Alcohol intake Current non-drinker of alcohol (finding) [facility] Start: 1950 Sex Assigned At Not on file [facility] Start: 11-08-2021 End: 11-18-2021 Exposure to SARS-CoV-2 (event) Not sure [facility] Start: 01-27-2024 End: 08-16-2024 Gender identity Not on file [facility] Start: 01-27-2024 End: 08-16-2024 History of Social function [facility] Adult Depression Screening Assessment 0 [facility] How often to you hav e a drink containing alcohol? Never [facility] Start: 1950 Sex Assigned At Male [facility] Clinical Notes 11-18-2021 to 03-27-2025 Note Date & Type Note Facility 03-27-2025 Evaluation note Diagnosis Onset Date Resolution Abnormal EKG acute March 272024 10:26am [facility] Work Phone: 1(126) 281-613902-06-2025 Physician Note* Dept of Labor - Margaret Prieto RN - 08/16/2024 3:20 PM EST 0930 - Arrives to clinic from PFT lab. Education packet and clinic procedure reviewed. Verbalizes understanding no questions. Medication and History reviewed. 1000 - Dr Genao in to evaluate patient. 1105 - EKG obtained and reviewed by Dr. Genao. OK to pursue exercise ABG. 1135 - Pt completes exercise ABG w/o difficulty. He denies any chest discomfort. He has an abnormalcardiac rhythm noted, Dr. Genao called for review. See below: Pt had an interesting EKG. He had a interesting 1-1 sinus - junctional ectopy rhythm which was prolonged but not persistent.. He had a rare PVC. Dr. Genao suggested pt have potential cardiac eval, pt declines. He was provided copies of testingperformed today to take to his PCP and follow up with, he declined for me to reach out to PCP. He wishes to do same. Pt was taken by lung clinic staff to xray dept for CXR and then D/C to home. [facility]02-06-2025 Miscellaneous Notes* Dept of Labor - Margaret Prieto RN - 08/16/2024 3:20 PM EST 0930 - Arrives to clinic from PFT lab. Education packet and clinic procedure reviewed. Verbalizes understanding no questions. Medication and History reviewed. 1000 - Dr Genao in to evaluate patient. 1105 - EKG obtained and reviewed by Dr. Genao. OK to pursue exercise ABG. 1135 - Pt completes exercise ABG w/o difficulty. He denies any chest discomfort. He has an abnormalcardiac rhythm noted, Dr. Genao called for review. See below: Pt had an interesting EKG. He had a interesting 1-1 sinus - junctional ectopy rhythm which was prolonged but not persistent.. He had a rare PVC. Dr. Genao suggested pt have potential cardiac eval, pt declines. He was provided copies of testingperformed today to take to his PCP and follow up with, he declined for me to reach out to PCP. He wishes to do same. Pt was taken by lung clinic staff to xray dept for CXR and then D/C to home. [facility] Telephone encounter Note* Telephone Encounter - Salina Griffin MA - 07/05/2024 2:24 PM EST Tried to reach pt, VM not set up. Unable to leave message. Letter mailed to pt home of results. Salina Griffin MA [facility]12-26-2024 Miscellaneous Notes* Telephone Encounter - Salina Griffin MA - 07/05/2024 2:24 PM EST Tried to reach pt, VM not set up. Unable to leave message. Letter mailed to pt home of results. Salina Griffin MA * Telephone Encounter - Stacey Karimi MD - 07/05/2024 2:16 PM EST Please notify patient that his Cologuard test is normal; repeat in 3 years. Stacey Karimi MD documented in this [facility]12-26-2024 Telephone encounter Note * Telephone Encounter - Stacey Karimi MD - 07/05/2024 2:16 PM EST Please notify patient that his Cologuard test is normal; repeat in 3 years. Stacey Karimi MD [facility]11-21-2024 History of Present illness Narrative* Stacey Karimi MD - 05/31/2024 1:20 PM EST Images from the original note were not included. Cruz Packer is a 73 year old [...] Functional Observation Was the patient's Timed Up & Go test unsteady or >= 12 seconds? No Advance Care Planning Surrogate decision maker and/or advance care plan documented Measurements BP 128/80 Pulse 68 Resp 16 Ht 179.1 cm (5' 10.5) Wt 61.1 kg (134 lb 11.2 oz) BMI 19.05 kg/m Vision Screening: Follows with optometry/ophthalmology Assessment/Plan Medicare annual wellness visit, initial (Z00.00) - Counseled on healthy diet and regular exercise - Fall avoidance information provided - Personalized prevention plan provided - Discussed need for and benefit of weight loss. BMI 19.05 kg/(m^2) Chief Complaint Patient presents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
== END | disposition home or self-care (01) ==
LOC: RAD 14:43
PROVIDERS: PCP Registered Nurse; Referring Provider Student in an Organized Health Care Education/Training Program; Visit Provider Student in an Organized Health Care Education/Training Program
DX: R06.00 Dyspnea, unspecified (principal); R94.39 Abnormal result of other cardiovascular function study; I49.9 Cardiac arrhythmia, unspecified
CPT/HCPCS: 36415; 71046; 80048; 85025; 85610

== ENCOUNTER 2025-05-27 08:28 | Day surgery (SDC) | payer MEDICARE, OTHER, SELFPAY ==
[2025-05-24 07:49] VITALS: BMI 19.2
--- OUTSIDE RECORDS SUMMARY | 2025-05-27 09:06 | XMS RPT_ITS | CCD ---
Author Organization [facility] CliniSyhi Care Team Providers Care Casing In Line Feeder Name Role Phone RICH GENAO Unavailable Unavailable STACEY KARIMI Unavailable Unavailable RICH GENAO Unavailable Unavailable STACEY KARIMI Unavailable Unavailable RICH GENAO Unavailable Unavailable RICH GENAO Unavailable Unavailable RICH GENAO Unavailable Unavailable STACEY KARIMI Unavailable Stacey House MD Primary Care Provider Stacey Karimi MD Primary Care Provider Stacey Karimi MD Primary Care Provider ELMO BOWLES Referring Unavailable STACEY KARIMI Primary Care Unavailable Kannan TICKET DISPATCHER.Ally WEST Unavailable Clem TICKET DISPATCHERParrish JOYNER Unavailable Stacey Karimi MD Primary Care Provider STACEY KARIMI Primary Care Unavailable RICH GENAO Attending Unavailable RICH GENAO Referring Unavailable STACEY KARIMI Primary Care Unavailable RICH GENAO Attending Unavailable RICH GENAO Referring Unavailable RICH GENAO Attending Unavailable RICH GENAO Referring Unavailable STACEY KARIMI Primary Care Unavailable Dr. Stacey Karimi MD Primary Care Physician Dr. Stacey Karimi MD Referring Provider [phone] Dr. Francisco Álvarez MD Attending Physician Dr. Francisco Álvarez MD Referring Provider Stacey Karimi Referring Unavailable Faith Montoya Primary Care Unavailable Jeffrey Loving Attending Unavailable Stacey Karimi Primary Care Unavailable Francisco Álvarez Attending Unavailable Stacey Karimi Primary Care Unavailable Stacey Karimi Referring Unavailable Preeti, Francisco Attending Unavailable Stacey Karimi Primary Care Unavailable Preeti, Bickmore Attending Unavailable Preeti, Bickmore Referring Unavailable Stacey Karimi Primary Care Unavailable Preeti, Francisco Attending Unavailable Preeti, Francisco Referring Unavailable Preeti, Bickmore Attending Unavailable Stacey Karimi Primary Care Unavailable Preeti, Bickmore Referring Unavailable Haagen, Faith Primary Care Unavailable Jessica Yanceyyler Attending Unavailable PamelaiterJessicaAdy Referring Unavailable STACEY KARIMI D Referring Unavailable STACEY KARIMI Primary Care Unavailable ANA LILIASTACEY MATHUR Attending Unavailable ANA LILIASTACEY MATHUR Primary Care Unavailable TATO, FAITH Referring Unavailable ANA LILIASTACEY MATHUR D Primary Care Unavailable Medications Current Medications Medication [...] 2021 1:00am March 27, 2025 10:42am Problems Problem Classification Problem Date Documented Date Episodic/Chronic Administrative/socia l admission (1 source) Encounter for disability determination; Translations: [Encounter for disability determination] Onset: 08-16-2024 Episodic Disorders of lipid metabolism (1 source) Pure hypercholesterolemia, unspecified; Translations: [Elevated LDL cholesterol level] Onset: 05-20-2025 Chronic Diverticulosis and diverticulitis (2 sources) Diverticular disease; [...] cyst of popliteal space] 03-01-2024 Episodic Other liver diseases (1 source) Abnormal levels of other serum enzymes; Translations: [Elevated liver enzymes] Onset: 05-20-2025 Episodic Other lower respiratory disease (5 sources) Dyspnea; Translations: [Dyspnea, unspecified] 08-16-2024 Episodic Other lower respiratory disease (1 source) Chronic cough; Translations: [Chronic cough] Onset: 08-16-2024 Episodic Other lower respiratory disease (1 source) Abnormal sputum; Translations: [Abnormal sputum] Onset: 08-16-2024 Episodic Other lower respiratory disease (3 sources) Dyspnea, unspecified; Translations: [Dyspnea, unspecified] Onset: [...] conditions (not mental disorders or infectious disease) (15 sources) Patient encounter status; Translations: [Encounter for [...] for disability determination / Z02.71(ICD-10) Onset: 02-15-2017 Results Test Name Value Interpretation Reference Range Facility Basic Metabolic Profile (BMP )on 05-20-2025 BUN/CRE 18.9 RATIO Normal - [facility] Comment on above: Performed By: #### L 300.3900, L100.0100, L500.2500 #### [facility] [address] [place], [address] Calcium [Mass/Vol] 8.7 mg/dL Normal 7.6-11.0 [facility] Comment on above: Performed By: #### L 300.3900, L100.0100, L500.2500 #### [facility] [address] [place], [address] Chloride [Moles/Vol] 103 mmol/L Normal 98-108 [facility] Comment on above: Performed By: #### L 300.3900, L100.0100, L500.2500 #### [facility] [address] [place], [address] CO2 [Moles/Vol] 27.5 mmol/L Normal 21.0-32.0 [facility] Comment on above: Performed By: #### L 300.3900, L100.0100, L500.2500 #### [facility] [address] [place], [address] Creatinine [Mass/Vol] 0.92 mg/dL Normal 0.70-1.20 [facility] Comment on above: Performed By: #### L 300.3900, L100.0100, L500.2500 #### [facility] [address] [place], [address] GAP 8 Normal 5-15 [facility] Comment on above: Performed By: #### L 300.3900, L100.0100, L500.2500 #### [facility] [address] [place], [address] GFR/1.73 sq M.predicted among non-blacks MDRD (S/P/Bld) [Vol rate/Area] 88 mL/min/{1.73_m2} Normal >60 [facility] Comment on above: Result Comment: mL/m in/1.73m2 CKD-EPI Creatinine Equation (2020) Performed By: #### L 300.3900, L100.0100, L500.2500 #### [facility] [address] [place], [address] Glucose [Mass/Vol] 97 mg/dL Normal 70-99 [facility] Comment on above: Performed By: #### L 300.3900, L100.0100, L500.2500 #### [facility] [address] [place], [address] Potassium [Moles/Vol] 4.4 mmol/L Normal 3.3-5.1 [facility] Comment on above: Performed By: #### L 300.3900, L100.0100, L500.2500 #### [facility] [address] [place], [address] Sodium [Moles/Vol] 138 mmol/L Normal 133-145 [facility] Comment on above: Performed By: #### L 300.3900, L100.0100, L500.2500 #### [facility] [address] [place], [address] Urea nitrogen [Mass/Vol] 17 mg/dL Normal 4-19 [facility] Comment on above: Performed By: #### L 300.3900, L100.0100, L500.2500 #### [facility] [address] [place], [address] CBC W Auto Differential pane l (Bld)on 05-20-2025 Basophils (Bld) [#/Vol] 10*3/uL Normal <0.11 [facility] Comment on above: Order Comment: Speci men Type: BLOOD SPECIMEN Ordering Facility: [facility] Address: [address] [place] [address] Performed By: #### 5 7021-8 #### [facility] CLIA [id number] [address] [place] [address] [place] Basophils/100 WBC (Bld) 0.3 % Normal [facility] Comment on above: Order Comment: Speci men Type: BLOOD SPECIMEN Ordering Facility: [facility] Address: [address] [place] [address] Performed By: #### 5 7021-8 #### [facility] CLIA [id number] [address] [place] [address] [place] Differential cell count method Nom (Bld) Auto Normal [facility] Comment on above: Order Comment: Speci men Type: BLOOD SPECIMEN Ordering Facility: [facility] Address: [address] [place] [address] Performed By: #### 5 7021-8 #### [facility] CLIA [id number] [address] [place] [address] [place] Eosinophils (Bld) [#/Vol] 0.05 10*3/uL Normal <0.46 [facility] Comment on above: Order Comment: Speci men Type: BLOOD SPECIMEN Ordering Facility: [facility] Address: [address] [place] [address] Performed By: #### 5 7021-8 #### [facility] CLIA [id number] [address] [place] [address] [place] Eosinophils/100 WBC (Bld) 0.7 % Normal [facility] Comment on above: Order Comment: Speci men Type: BLOOD SPECIMEN Ordering Facility: [facility] Address: [address] [place] [address] Performed By: #### 5 7021-8 #### [facility] CLIA [id number] [address] [place] [address] [place] Erythrocyte distribution width (RBC) [Ratio] 13.3 % Normal 11.5-15.0 [facility] Comment on above: Order Comment: Speci men Type: BLOOD SPECIMEN Ordering Facility: [facility] Address: [address] [place] [address] Performed By: #### 5 7021-8 #### [facility] CLIA [id number] [address] [place] [address] [place] Hematocrit (Bld) [Volume fraction] 41.9 % Normal 39.0-51.0 [facility] Comment on above: Order Comment: Speci men Type: BLOOD SPECIMEN Ordering Facility: [facility] Address: [address] [place] [address] Performed By: #### 5 7021-8 #### [facility] CLIA [id number] [address] [place] [address] [place] Hemoglobin (Bld) [Mass/Vol] 14.0 g/dL Normal 13.0-17.0 [facility] Comment on above: Order Comment: Speci men Type: BLOOD SPECIMEN Ordering Facility: [facility] Address: [address] [place] [address] Performed By: #### 5 7021-8 #### [facility] CLIA [id number] [address] [place] [address] [place] Immature granulocytes (Bld) [#/Vol] 10*3/uL Normal <0.10 [facility] Comment on above: Order Comment: Speci men Type: BLOOD SPECIMEN Ordering Facility: [facility] Address: [address] [place] [address] Performed By: #### 5 7021-8 #### [facility] CLIA [id number] [address] [place] [address] [place] Immature granulocytes/100 WBC (Bld) 0.3 % Normal [facility] Comment on above: Order Comment: Speci men Type: BLOOD SPECIMEN Ordering Facility: [facility] Address: [address] [place] [address] Performed By: #### 5 7021-8 #### [facility] CLIA [id number] [address] [place] [address] [place] Lymphocytes (Bld) [#/Vol] 0.83 10*3/uL Low 1.00-4.00 [facility] Comment on above: Order Comment: Speci men Type: BLOOD SPECIMEN Ordering Facility: [facility] Address: [address] [place] [address] Performed By: #### 5 7021-8 #### [facility] CLIA [id number] [address] [place] [address] [place] Lymphocytes/100 WBC (Bld) 12.0 % Normal [facility] Comment on above: Order Comment: Speci men Type: BLOOD SPECIMEN Ordering Facility: [facility] Address: [address] [place] [address] Performed By: #### 5 7021-8 #### [facility] CLIA [id number] [address] [place] [address] [place] MCH (RBC) [Entitic mass] 31.1 pg Normal 26.0-34.0 [facility] Comment on above: Order Comment: Speci men Type: BLOOD SPECIMEN Ordering Facility: [facility] Address: [address] [place] [address] Performed By: #### 5 7021-8 #### [facility] CLIA [id number] [address] [place] [address] [place] MCHC (RBC) [Mass/Vol] 33.4 g/dL Normal 30.5-36.0 [facility] Comment on above: Order Comment: Speci men Type: BLOOD SPECIMEN Ordering Facility: [facility] Address: [address] [place] [address] Performed By: #### 5 7021-8 #### [facility] CLIA [id number] [address] [place] [address] [place] MCV (RBC) [Entitic vol] 93.1 fL Normal 80.0-100.0 [facility] Comment on above: Order Comment: Speci men Type: BLOOD SPECIMEN Ordering Facility: [facility] Address: [address] [place] [address] Performed By: #### 5 7021-8 #### [facility] CLIA [id number] [address] [place] [address] [place] Monocytes (Bld) [#/Vol] 0.68 10*3/uL Normal <0.87 [facility] Comment on above: Order Comment: Speci men Type: BLOOD SPECIMEN Ordering Facility: [facility] Address: [address] [place] [address] Performed By: #### 5 7021-8 #### [facility] CLIA [id number] [address] [place] [address] [place] Monocytes/100 WBC (Bld) 9.8 % Normal [facility] Comment on above: Order Comment: Speci men Type: BLOOD SPECIMEN Ordering Facility: [facility] Address: [address] [place] [address] Performed By: #### 5 7021-8 #### [facility] CLIA [id number] [address] [place] [address] [place] Neutrophils (Bld) [#/Vol] 5.33 10*3/uL Normal 1.45-7.50 [facility] Comment on above: Order Comment: Speci men Type: BLOOD SPECIMEN Ordering Facility: [facility] Address: [address] [place] [address] Performed By: #### 5 7021-8 #### [facility] CLIA [id number] [address] [place] [address] [place] Neutrophils/100 WBC (Bld) 76.9 % Normal [facility] Comment on above: Order Comment: Speci men Type: BLOOD SPECIMEN Ordering Facility: [facility] Address: [address] [place] [address] Performed By: #### 5 7021-8 #### [facility] CLIA [id number] [address] [place] [address] [place] Nucleated RBC (Bld) [#/Vol] 10*3/uL Normal <0.01 [facility] Comment on above: Order Comment: Speci men Type: BLOOD SPECIMEN Ordering Facility: [facility] Address: [address] [place] [address] Performed By: #### 5 7021-8 #### [facility] CLIA [id number] [address] [place] [address] [place] Nucleated RBC/100 WBC (Bld) [Ratio] 0.0 /100 WBC Normal [facility] Comment on above: Order Comment: Speci men Type: BLOOD SPECIMEN Ordering Facility: [facility] Address: [address] [place], [place] [address] Performed By: #### 5 7021-8 #### [facility] CLIA [id number] [address] [place] [address] [place] Platelet mean volume (Bld) [Entitic vol] 10.9 fL Normal 9.0-12.7 [facility] Comment on above: Order Comment: Speci men Type: BLOOD SPECIMEN Ordering Facility: [facility] Address: [address] [place] [address] Performed By: #### 5 7021-8 #### [facility] CLIA [id number] [address] [place] [address] [place] Platelets (Bld) [#/Vol] 187 10*3/uL Normal 150-400 [facility] Comment on above: Order Comment: Speci men Type: BLOOD SPECIMEN Ordering Facility: [facility] Address: [address] [place] [address] Performed By: #### 5 7021-8 #### [facility] CLIA [id number] [address] [place] [address] [place] RBC (Bld) [#/Vol] 4.50 10*6/uL Normal 4.20-6.00 [facility] Comment on above: Order Comment: Speci men Type: BLOOD SPECIMEN Ordering Facility: [facility] Address: [address] [place] [address] Performed By: #### 5 7021-8 #### [facility] CLIA [id number] [address] [place] [address] [place] WBC (Bld) [#/Vol] 6.93 10*3/uL Normal 3.70-11.00 [facility] Comment on above: Order Comment: Speci men Type: BLOOD SPECIMEN Ordering Facility: [facility] Address: [address] [place] [address] Performed By: #### 5 7021-8 #### [facility] CLIA [id number] [address] [place] [address] [place] CBC W/Diff, Automatedon 11-1 0-202 Absolute Lymph 0.97 X10 3/uL Normal 0.83-4.51 [facility] Comment on above: Performed By: #### L 300.3900, L100.0100, L500.2500 #### [facility] [address] [place], [address] Absolute Neut 4.9 X10 3/uL Normal 2.0-7.7 [facility] Comment on above: Performed By: #### L 300.3900, L100.0100, L500.2500 #### [facility] [address] [place], [address] Basophils/100 WBC (Bld) 0.3 % Normal 0-1 [facility] Comment on above: Performed By: #### L 300.3900, L100.0100, L500.2500 #### [facility] [address] [place], [address] Eosinophils/100 WBC (Bld) 1.1 % Normal 0-5 [facility] Comment on above: Performed By: #### L 300.3900, L100.0100, L500.2500 #### [facility] [address] [place], [address] Erythrocyte distribution width (RBC) [Ratio] 13.3 % Normal 11.6-14.6 [facility] Comment on above: Performed By: #### L 300.3900, L100.0100, L500.2500 #### [facility] [address] [place], [address] Hematocrit (Bld) [Volume fraction] 41.7 % Normal 40-54 [facility] Comment on above: Performed By: #### L 300.3900, L100.0100, L500.2500 #### [facility] [address] [place], [address] Hemoglobin (Bld) [Mass/Vol] 14.1 g/dL Normal 13.0-16.5 [facility] Comment on above: Performed By: #### L 300.3900, L100.0100, L500.2500 #### [facility] [address] [place], [address] IG% 0.300 Normal 0.0-0.9 [facility] Comment on above: Result Comment: IG% - Immature Granulocytes (promyelocytes, myelocytes and metamyelocytes) > 1% indicates that a LEFT SHIFT is Present. Performed By: #### L 300.3900, L100.0100, L500.2500 #### [facility] [address] [place], [address] Lymphocytes/100 WBC (Bld) 14.7 % Low 19-41 [facility] Comment on above: Performed By: #### L 300.3900, L100.0100, L500.2500 #### [facility] [address] [place], [address] MCH (RBC) [Entitic mass] 31.5 pg Normal 27.0-32.0 [facility] Comment on above: Performed By: #### L 300.3900, L100.0100, L500.2500 #### [facility] [address] [place], [address] MCHC (RBC) [Mass/Vol] 33.8 g/dL Normal 32-36 [facility] Comment on above: Performed By: #### L 300.3900, L100.0100, L500.2500 #### [facility] [address] [place], [address] MCV (RBC) [Entitic vol] 93.3 fL Normal 80-94 [facility] Comment on above: Performed By: #### L 300.3900, L100.0100, L500.2500 #### [facility] [address] [place], [address] Monocytes/100 WBC (Bld) 9.1 % Normal 0-10 [facility] Comment on above: Performed By: #### L 300.3900, L100.0100, L500.2500 #### [facility] [address] [place], [address] Neutrophils/100 WBC (Bld) 74.5 % High 47-70 [facility] Comment on above: Performed By: #### L 300.3900, L100.0100, L500.2500 #### [facility] [address] [place], [address] Nucleated RBC (Bld) [#/Vol] 0 10*3/uL Normal 0-5 [facility] Comment on above: Performed By: #### L 300.3900, L100.0100, L500.2500 #### [facility] [address] [place], [address] Platelet mean volume (Bld) [Entitic vol] 11.3 fL Normal 6.2-12.0 [facility] Comment on above: Performed By: #### L 300.3900, L100.0100, L500.2500 #### [facility] [address] [place], [address] Platelets (Bld) [#/Vol] 206 10*3/uL Normal 150-450 [facility] Comment on above: Performed By: #### L 300.3900, L100.0100, L500.2500 #### [facility] [address] [place], [address] RBC (Bld) [#/Vol] 4.47 10*6/uL Low 4.6-6.2 [facility] Comment on above: Performed By: #### L 300.3900, L100.0100, L500.2500 #### [facility] [address] [place], [address] RDW SD 45.5 fl High 35.1-43.9 [facility] Comment on above: Performed By: #### L 300.3900, L100.0100, L500.2500 #### [facility] [address] [place], [address] WBC (Bld) [#/Vol] 6.6 10*3/uL Normal 4.4-11.0 [facility] Comment on above: Performed By: #### L 300.3900, L100.0100, L500.2500 #### [facility] [address] [place], [address] Cardiology Visit Reporton Cardiology Visit Report [facility] 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 An EKG was done which demonstrated that he was in sinus rhythm with an incomplete right bundle branch block and a first- degree AV block and premature ventricular complexes. To evaluate symptoms further, he proceeded with a stress echocardiogram on 04/23/2025 completed for arrhythmia was considered to be abnormal. Resting LV function noted be 50% and with exercise felt to approximate 45% before recovering back to normal. He exercised for 10.1 metabolic equivalents. With peak exercise there was a long period of ventricular bigeminy noted, occasional ventricular couplet, and 1 episode of ventricular triplet. No ST changes noted. He denies chest, arm, jaw, or neck discomfort. He denies palpitations. He denies bilateral lower extremity edema. He denies claudication. He denies shortness of breath with activity, shortness of breath at rest, orthopnea, or PND. He denies chronic cough. He denies significant, sudden weight gain. He denies lightheadedness, dizziness, near-syncope, or syncope. He denies blood in urine, blood in stool, or epistaxis. He denies fever with chills. He denies myalgia. He denies fatigue. His exercise level has remained stable. He remains an avid running but reduce on account of knee issues. Intake Vital Signs 03/27/25 10:32 05/20/25 07:42 Height 5 ft 10 in 5 ft 10 in Weight: 138 lb BMI 19.8 BP 123/66 H Blood Pressure Location Lt brachial Position Sitting Respiration 18 Pulse 50 L Pulse Source Monitor Pulse Oximetry (%) 99 Intake Visit Reasons: UPDATE H P/CATH 05/27 [employer] Services Manager Required: No Is patient in pain?: No Allergies No Known Allergies Allergy (Verified 05/20/25 13:50) Medications ???Medication ???Instructions ???Recorded ???Confirmed ???Type cod [...] ROS Const Const: Negative for fatigue, weakness, headache(s) or frequent falls Eyes Eyes: Negative for blurry vision ENT ENT: Negative for headache(s), dizziness or Nosebleed/epistaxis Cardio Chest Pain: No Palpitations: No Edema: None Muscle aches with walking: None Resp Respiratory: Negative for SOB with activity, SOB at rest or SOB orthopnea SOB lying down GI GI: Negative nausea, vomiting, heartburn, bright, red blood in stools or black,tarry stools : Negative for hematuria Musc Musc: Negative for muscle aches/ myalgia Skin Skin: Negative non-healing lesions or rash Neuro Neuro: Negative for dizziness, lightheadedness, near syncope, syncope, frequent falls, headache(s), weakness or blurry vision Endo Endo: Negative for fatigue Allergy Allergy/Immunology: Negative for rash Cardiology Exam Const Appearance: cooperative, healthy appearing, comfortable and no acute distress Nutritional Appearance: average body habitus and well nourished Orientation: alert, awake and oriented x3 Head Head: normal to inspection Ears: hearing grossly normal bilaterally Nose: external nose normal Face and Sinus: face symmetric Mouth: moist mucous membranes Eyes General: appearance normal, both eyes and all related structures Eyelids: eyelids normal EOM: EOM intact bilaterally Neck Neck: normal visual inspection and no JVD Carotids: normal carotid upstroke Chest Chest inspection: normal inspection of the chest, symmetric chest movement and normal respiratory effort; Negative cough Auscultation: Bilateral: Clear to Auscultation Cardio Rate: regular rate Rhythm: regular rhythm Heart sounds: S1 normal and S2 normal; Negative rub, gallop or murmur GI GI: normal to inspection Neuro General: patient alert, (more content not included)... Normal [facility] Chest PA and Lateralon 05-20 Chest PA and Lateral [facility] Imaging Services [address] [place] [address] Chest PA and Lateral MR#: [id number] Acct: [id number] Name: CRUZ PACKER Rep #: [id number] : 1950 M 74 From: Damon Weeks PCP: YESSICA Mary [facility] CLI Study: Chest PA and Lateral Date of Exam: 05/20/25 Exam# [id number] Ordering Dr: Ady Yancey PROCEDURE: CHEST PA AND LATERAL 05/20/2025 REASON FOR EXAM: PREPROCEDURAL, SHORTNESS OF BREATH TECHNIQUE: Procedure Code: RADCXR Modality: DX Procedure: CHEST PA AND LATERAL FINDINGS: No focal consolidation. No pleural effusion or pneumothorax. Cardiac silhouette is within normal limits. No acute fractures. RAD/Chest PA and Lateral IMPRESSION: No focal consolidations. Reading Location: [facility] CC: YESSICA Montoya; JOHN Hernandez Button Tacker: Signed Normal [facility] Comprehensive metabolic 2000 panelon 05-20-2025 Albumin [Mass/Vol] 4.0 g/dL Normal 3.9-4.9 [facility] Comment on above: Order Comment: Speci men Type: BLOOD SPECIMEN Ordering Facility: [facility] Address: [address] [place] [address] Performed By: #### 2 4323-8 #### [facility] CLIA [id number] [address] [place] [address] [place] ALP [Catalytic activity/Vol] 102 U/L Normal 38-113 [facility] Comment on above: Order Comment: Speci men Type: BLOOD SPECIMEN Ordering Facility: [facility] Address: [address] [place] [address] Performed By: #### 2 4323-8 #### [facility] CLIA [id number] [address] [place] [address] [place] ALT [Catalytic activity/Vol] 13 U/L Normal 10-54 [facility] Comment on above: Order Comment: Speci men Type: BLOOD SPECIMEN Ordering Facility: [facility] Address: [address] [place] [address] Performed By: #### 2 4323-8 #### [facility] CLIA [id number] [address] [place] [address] [place] Anion gap [Moles/Vol] 9 mmol/L Normal 8-15 [facility] Comment on above: Order Comment: Speci men Type: BLOOD SPECIMEN Ordering Facility: [facility] Address: [address] [place] [address] Performed By: #### 2 4323-8 #### [facility] CLIA [id number] [address] [place] [address] [place] AST [Catalytic activity/Vol] 18 U/L Normal 14-40 [facility] Comment on above: Order Comment: Speci men Type: BLOOD SPECIMEN Ordering Facility: [facility] Address: [address] [place] [address] Performed By: #### 2 4323-8 #### [facility] CLIA [id number] [address] [place] [address] [place] Bilirubin [Mass/Vol] 0.6 mg/dL Normal 0.2-1.3 [facility] Comment on above: Order Comment: Speci men Type: BLOOD SPECIMEN Ordering Facility: [facility] Address: [address] [place] [address] Performed By: #### 2 4323-8 #### [facility] CLIA [id number] [address] [place] [address] [place] Calcium [Mass/Vol] 8.7 mg/dL Normal 8.5-10.2 [facility] Comment on above: Order Comment: Speci men Type: BLOOD SPECIMEN Ordering Facility: [facility] Address: [address] [place] [address] Performed By: #### 2 4323-8 #### [facility] CLIA [id number] [address] [place] [address] [place] Chloride [Moles/Vol] 102 mmol/L Normal 98-107 [facility] Comment on above: Order Comment: Speci men Type: BLOOD SPECIMEN Ordering Facility: [facility] Address: [address] [place] [id number] Performed By: #### 2 4323-8 #### [facility] CLIA [id number] [address] [place] [address] [place] CO2 [Moles/Vol] 28 mmol/L Normal 22-30 [facility] Comment on above: Order Comment: Speci men Type: BLOOD SPECIMEN Ordering Facility: [facility] Address: [address] [place]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 factor for coronary heart disease <40 mg/dL, Low: Positive risk factor for coronary heart disease Performed By: #### 2 4331-1, 28388-4 #### [facility] CLIA [id number] [address] [place] [address] [place] Cholesterol in LDL [Mass/Vol] 111 mg/dL High <100 [facility] Comment on above: Order Comment: Speci men Type: BLOOD SPECIMEN Ordering Facility: [facility] Address: [address] [place] [address] Result Comment: <100 mg/dL, Optimal 100-129 mg/dL, Near optimal/above optimal 130-159 mg/dL, Borderline high 160-189 mg/dL, High >189 mg/dL, Very high Secondary prevention optimal LDL Cholesterol levels are recommended to be < 70 mg/dL Performed By: #### 2 4331-1, 80693-1 #### [facility] CLIA [id number] [address] [place], [place] [address] [place] [address] [place] Cholesterol in LDL/Cholesterol in HDL [Mass ratio] 1.98 {ratio} Normal <2.54 [facility] Comment on above: Order Comment: Venessa vitale Type: BLOOD SPECIMEN Ordering Facility: [facility] Address: [address] [place] [address] Result Comment: Refe rence: 1. National Cholesterol Education Program ATP III Guideline At-A-Glance Quick Desk Reference: National Heart, Lung, and Blood [place]. National Institutes of Health. 2001: NIH Publication No. 01-3305. 2. An International Atherosclerosis Society position paper: global recommendations for the management of dyslipidemia: executive summary, Atherosclerosis. 2014: 232(2):410-413. Performed By: #### 2 4331-1, 86336-1 #### [facility] CLIA [id number] [address] [place] [address] [place] Cholesterol in VLDL [Mass/Vol] 12 mg/dL Normal <30 [facility] Comment on above: Order Comment: Venessa vitale Type: BLOOD SPECIMEN Ordering Facility: [facility] Address: [address] [place] [address] Performed By: #### 2 4331-1, 71754-7 #### [facility] CLIA [id number] [address] [place] [address] [place] Cholesterol non HDL [Mass/Vol] 123 mg/dL Normal <130 [facility] Comment on above: Order Comment: Venessa vitale Type: BLOOD SPECIMEN Ordering Facility: [facility] Address: [address] [place] [address] Result Comment: <130 mg/dL, Optimal 130-159 mg/dL, Near optimal/above optimal 160-189 mg/dL, Borderline high 190-219 mg/dL, High >219 mg/dL, Very high Secondary prevention optimal non HDL Cholesterol levels are recommended to be <100 mg/dL Performed By: #### 2 4331-1, #### [facility] CLIA [id number] [facility] [place] [address] [place] Cholesterol.total/Ch olesterol in HDL [Mass ratio] 3.20 {ratio} Normal <5.10 [facility] Comment on above: Order Comment: Speci men Type: BLOOD SPECIMEN Ordering Facility: [facility] Address: [address] [place] [address] Performed By: #### 2 4331-1, #### [facility] CLIA [id number] [address] [place] [address] [place] FASTING TIME 12 hrs Normal [facility] Comment on above: Order Comment: Speci men Type: BLOOD SPECIMEN Ordering Facility: [facility] Address: [address] [place] [address] Performed By: #### 2 4331-1, #### [facility] CLIA [id number] [address] [place] [address] [place] Triglyceride [Mass/Vol] 59 mg/dL Normal <150 [facility] Comment on above: Order Comment: Speci men Type: BLOOD SPECIMEN Ordering Facility: [facility] Address: [address] [place] [address] Result Comment: <150 mg/dL, Normal 150-199 mg/dL, Borderline high 200-499 mg/dL, High >499 mg/dL, Very high Performed By: #### 2 4331-1, #### [facility] CLIA [id number] [address] [place] [address] [place] XR Knee - left 4 Viewson IMPRESSION: Chondrocalcinosis. Mild bilateral joint space loss of the knees. Button Tacker: PSCB Transcribe Date/Time: Feb 16 2024 3:02P Dictated by : PETRA LÓPEZ MD This examination was interpreted and the report reviewed and electronically signed by: PETRA LÓPEZ MD on Feb 16 2024 3:06PM EST [facility] * * *Final Report* * * DATE OF EXAM: Feb 14 2024 11:12AM MD 5202 - XR KNEE 4V AP/PA BOTH+LAT/JOSE [...] Enthesopathic change at the left tibial occult. [facility] Provider, Jeniffer Box - 02/16/2024 * * *Final Report* * [...] bilateral joint space loss of the knees. Button Tacker: ESTEE Transcribe Date/Time: Feb 16 2024 3:02P Dictated by : PETRA LÓPEZ MD This examination was interpreted and the report reviewed and electronically signed by: PETRA LÓPEZ MD on Feb 16 2024 3:06PM EST [facility] XR Knee - left 4 ViewsOrdere d By: [facility] Provider on 02-16-2024 [facility] XR KNEE 4V AP/PA BOTH+LAT/ME R [...] bilateral joint space loss of the knees. Button Tacker: ESTEE Transcribe Date/Time: Feb 16 2024 3:02P Dictated by : PETRA LÓPEZ MD This examination was interpreted and the report reviewed and electronically signed by: PETRA LÓPEZ MD on Feb 16 2024 3:06PM EST [id number] [facility] XR Knee - left 4 [facility] Radiology Study observation (narrative) [facility] Vital Signs Date Time Vital Sign Value Performing Clinician Facility 03-27-2025 10:32-0400 Body height 177.[address] Stacey Karimi MD Work Phone: [facility] 03-27-2025 10:32-0400 Body mass index (BMI) [Ratio] 19.2 kg/m2 Dr. Stacey Karimi MD Work Phone: [facility] 03-27-2025 10:32-0400 Body weight 60.[address] Stacey Karimi MD Work Phone: [facility] 03-27-2025 10:32-0400 Diastolic blood pressure 72 mm[Hg] Dr. Stacey Karimi MD Work Phone: [facility] 03-27-2025 10:32-0400 Heart rate 46 /min Dr. Stacey Karimi MD Work Phone: [facility] 03-27-2025 10:32-0400 Respiratory rate 16 /min Dr. Stacey Karimi MD Work Phone: [facility] 03-27-2025 10:32-0400 Systolic blood pressure 137 mm[Hg] Dr. Stacey Karimi MD Work Phone: [facility] 08-16-2024 11:31-0500 Diastolic blood pressure 68 mm[Hg] Rich Genao DO Work Phone: [facility] 08-16-2024 11:31-0500 Heart rate 66 /min Rich Genao DO Work Phone: [facility] 08-16-2024 11:31-0500 Systolic blood pressure 122 mm[Hg] Rich Genao DO Work Phone: [facility] 05-31-2024 11:24-0500 Body height 179.1 cm Stacey Karimi MD Work Phone: [facility] 05-31-2024 11:24-0500 Body mass index (BMI) [Ratio] 19.05 kg/m2 Stacey Karimi MD Work Phone: [facility] 05-31-2024 11:24-0500 Body weight 61.1 kg Stacey Karimi MD Work Phone: [facility] 05-31-2024 11:24-0500 Diastolic blood pressure 80 mm[Hg] Stacey Karimi MD Work Phone: [facility] 05-31-2024 11:24-0500 Heart rate 68 /min Stacey Karimi MD Work Phone: [facility] 05-31-2024 11:24-0500 Respiratory rate 16 /min Stacey Karimi MD Work Phone: [facility] 05-31-2024 11:24-0500 Systolic blood pressure 128 mm[Hg] Stacey Karimi MD Work Phone: [facility] 01-27-2024 11:08-0400 Body mass index (BMI) [Ratio] 18.97 kg/m2 Ally Brunner TICKET DISPATCHER.FINANCIAL SUPERVISOR Work Phone: [facility] 01-27-2024 11:08-0400 Body weight 61.69 kg Ally Brunner TICKET DISPATCHER.FINANCIAL SUPERVISOR Work Phone: [facility] 01-27-2024 11:08-0400 Diastolic blood pressure 82 mm[Hg] Ally Manjarrezhoolivier TICKET DISPATCHER.FINANCIAL SUPERVISOR Work Phone: [facility] 01-27-2024 11:08-0400 Heart rate 66 /min Ally Manjarrezhof TICKET DISPATCHER.FINANCIAL SUPERVISOR Work Phone: [facility] 01-27-2024 11:08-0400 Respiratory rate 16 /min Ally Brunner TICKET DISPATCHER.FINANCIAL SUPERVISOR Work Phone: [facility] 01-27-2024 11:08-0400 SaO2% (BldA) [Mass fraction] 97 % Ally Brunner TICKET DISPATCHER.FINANCIAL SUPERVISOR Work Phone: [facility] 01-27-2024 11:08-0400 Systolic blood pressure 140 mm[Hg] Ally Brunner TICKET DISPATCHER.FINANCIAL SUPERVISOR Work Phone: [facility] 11-18-2021 13:05-0400 Body height 180.3 cm Stacey Karimi MD Work Phone: [facility] 11-18-2021 13:05-0400 Body weight 61.24 kg Stacey Karimi MD Work Phone: [facility] 11-18-2021 13:05-0400 Diastolic blood pressure 66 mm[Hg] Stacey Karimi MD Work Phone: [facility] 11-18-2021 13:05-0400 Heart rate 60 /min Stacey Karimi MD Work Phone: [facility] 11-18-2021 13:05-0400 Respiratory rate 16 /min Stacey Karimi MD Work Phone: [facility] 11-18-2021 13:05-0400 Systolic blood pressure 124 mm[Hg] Stacey Karimi MD Work Phone: [facility] Encounters Encounter Date Encounter Type Care Provider Facility Start: 05-27-2025 ambulatory Francisco Álvarez Facility:[facility] Start: 05-20-2025 End: 05-20-2025 ambulatory [facility] Facility:[facility] Start: 05-20-2025 End: 05-20-2025 ambulatory [facility] Facility:[facility] Start: 04-23-2025 [facility] Start: 04-23-2025 End: 04-23-2025 ambulatory Stacey [facility] Facility:[facility] Start: 04-09-2025 Non-patient / Non-visit Dr. Jose RODGERS -[facility] Work Phone: Start: 04-09-2025 End: 04-09-[address] Stacey Karimi MD Work Phone: -Pulmonary Services/Neurology Start: 04-09-2025 End: 04-09-[address] Francisco Álvarez MD -Pulmonary Services/Neurology Work Phone: Start: 04-09-2025 End: 04-09-2025 [place]ulatory [place] Facility:[facility] Start: 03-27-2025 End: 03-27-[address] Francisco Álvarez MD -[facility] Work Phone: Start: 03-27-2025 End: 03-27-[address] Stacey Karimi MD Work Phone: -[facility] Start: 08-16-2024 End: 08-16-2024 ambulatory RICH GILMORERENATE [facility] Start: 08-16-2024 End: 08-16-2024 Subsequent hospital visit by physician Rich Genao DO Work Phone: [facility] Comment on above: Dyspnea, unspecified type; Encounter for disability determination Start: 08-16-2024 End: 08-16-2024 Work related/med dblt xm oth/thn treating phys Rich Genao DO Work Phone: [facility] Comment on above: Dyspnea, unspecified type (Primary Dx); Encounter for disability determination; Joint pain Start: 08-16-2024 End: 08-16-2024 ambulatory STACEY KARIMI [facility] Start: 08-16-2024 End: 08-16-2024 Subsequent hospital visit by physician Rich Genao DO Work Phone: [facility] Comment on above: Dyspnea, unspecified type; Encounter for disability determination Start: 07-05-2024 End: 07-05-2024 Telephone encounter Stacey Karimi MD Work Phone: [facility] Comment on above: Results Start: 05-31-2024 End: 05-31-2024 Patient encounter procedure Stacey Karimi MD Work Phone: [facility] Comment on above: Screening for depres shivam (Primary Dx); Encounter for screening examination for other mental health and behavioral disorders; Screening for colon cancer; Medicare annual wellness visit, subsequent; Skin lesion Start: 05-31-2024 End: 05-31-2024 ambulatory STACEY KARIMI Facility:[facility] Start: 05-23-2024 End: 05-23-2024 ambulatory STACEY KARIMI Facility:[facility] Start: 05-23-2024 Encounter for genera l adult medical examination without abnormal findings STACEY KARIMI [facility] Start: 05-21-2024 End: 05-21-2024 Patient encounter status Stacey Karimi MD Work Phone: [facility] Work Phone: Start: 05-21-2024 End: 05-21-2024 Telephone encounter Stacey Karimi MD Work Phone: [facility] [place] Comment on above: requesting labs Start: 02-14-2024 End: 02-14-2024 Patient encounter procedure Elmo Bowles MD Work Phone: Orthopaedics Comment on above: Synovial cyst of lef t popliteal space Start: 02-14-2024 ambulatory ELMO BOWLES Facility :[facility] Start: 02-14-2024 End: 02-14-2024 Subsequent hospital visit by physician [facility] Work Phone: Radiology Comment on above: Left knee pain, unsp ecified chronicity [M25.562] Start: 02-10-2024 Orders Only Elmo Bowles MD Work Phone: Orthopaedics Comment on above: Left knee pain, unsp ecified chronicity (Primary Dx) Start: 02-01-2024 Telephone encounter Ally balwdin TICKET DISPATCHER.FINANCIAL SUPERVISOR Work Phone: [facility] [place] Comment on above: Orders Start: 01-30-2024 Telephone encounter Ally baldwin TICKET DISPATCHER.FINANCIAL SUPERVISOR Work Phone: [facility] [place] Comment on above: Results (US DVT ) Start: 01-27-2024 ambulatory Stacey pyle MD Work Phone: [facility] [place] Comment on above: Left Leg swelling Start: 01-27-2024 End: 01-27-2024 Patient encounter procedure Ally Brunner TICKET DISPATCHER.FINANCIAL SUPERVISOR Work Phone: [facility] [place] Comment on above: Pain of left calf (P rimary Dx); Swelling of calf; Acute left ankle pain Start: 01-20-2023 ambulatory Camila Jimenez MA [facility] Comment on above: Population [facility] ([facility]) Start: 11-18-2021 End: 11-18-2021 Patient encounter procedure Stacey Karimi MD Work Phone: [facility] [place] Comment on above: Medicare annual well ness visit, subsequent (Primary Dx) Start: 02-15-2017 End: 08-09-2017 Ambulatory [facility] Start: 02-15-2017 End: 02-15-2017 Ambulatory STACEY KARIMI [facility] Start: 06-12-2013 Patient encounter status Stacey Karimi MD Work Phone: [facility] Work Phone: Procedures Date Procedure Procedure Detail Performing Clinician Start: 08-16-2024 Radiologic exam ches t single view Rich Genao DO Work Phone: Start: 08-16-2024 Blood gases any combination ph pco2 po2 co2 hco3 Rich Genao DO Work Phone: Start: 08-16-2024 Ecg routine ecg w/le ast 12 lds trcg only w/o i&r Rich Genao DO Work Phone: Start: 08-16-2024 EXERCISE ABG Rich gibbs DO Work Phone: Start: 08-16-2024 Blood gases any combination ph pco2 po2 co2 hco3 Rich Genao DO Work Phone: Start: 08-16-2024 Brncdilat rspse spmt ry pre&post-brncdilat admn Rich eGnao DO Work Phone: Start: 08-16-2024 ABG (DRAW [...] MD Work Phone: Start: 04-14-2012 Colonoscopy Stacey mathur MD Work Phone: Plan of Treatment Date Care Activity Detail Author Start: 05-23-2029 Lipid panel Lipid Screening [facility] Start: 06-25-2027 Screening for malign ant neoplasm of colon Cologuard (FIT-DNA) [facility] Start: 05-23-2027 Diabetes Screening Diabetes Screenin g [facility] Start: 11-13-2026 Lipid panel Lipid Screening [facility] Start: 11-13-2026 LIPID SCREEN LIPID SCREEN [facility] Start: 09-10-2026 RSV Vaccine (1 - 1-d ose 75+ series) RSV Vaccine (1 - 1-dose 75+ series) [facility] Start: 06-04-2025 End: 06-04-2025 Patient encounter procedure 06/04/2025 1:20 PM EST Office Visit [facility] [place] [address] [place], [place] [id number] Stacey Karimi MD [address] [place] [address] medicare wellness [facility] Comment on above: medicare wellness Start: 05-31-2025 Anxiety Screening Anxiety Screening [facility] Start: 05-31-2025 Covid-19 Vaccine ( season) Covid-19 Vaccine () [facility] Comment on above: Postponed from 03/11 (Declined at this time) Start: 05-31-2025 Depression Screening Depression Scre ening [facility] Start: 04-23-2025 Non-patient / Non-visit Non-patient / Non-visit [facility] Start: 04-23-2025 Patient encounter procedure Registered Clinical -Cardiovascular Services Work Phone: Start: 03-27-2025 End: 03-27-2025 Evaluation of diagnostic study results [facility] Start: 01-07-2025 Influenza vaccination Influenza Vacc ine (#1) [facility] Comment on above: Postponed from 03/11 (Declined at this time) Start: 11-13-2024 DIABETES SCREEN DIABETES SCREEN [facility] Start: 11-13-2024 Diabetes Screening Diabetes Screenin g [facility] Start: 06-26-2024 Screening for malign ant neoplasm of colon Colorectal Cancer Screening [facility] Start: 05-31-2024 End: 05-31-2024 Patient encounter procedure 05/31/2024 1:20 PM EST Office Visit [facility] [place] [address] [place] [id number] Stacey Karimi MD [address] [place] [address] physical [facility] [place] Comment on above: physical Start: 05-21-2024 End: 08-20-2024 CBC panel - Blood by Automated count COMPLETE BLOOD COUNT Lab Routine Wellness examination Expected: 05/21/2024, Expires: 08/20/2024 [facility] Comment on above: Expected: 05/21/2024 , Expires: 08/20/2024 Start: 05-21-2024 End: 08-20-2024 Comprehensive metabolic 2000 panel - Serum or Plasma COMPREHENSIVE METABOLIC PANEL Lab Routine Wellness examination Expected: 05/21/2024 (Approximate), Expires: 08/20/2024 [facility] Work Phone: Comment on above: Expected: 05/21/2024 (Approximate), Expires: 08/20/2024 Start: 05-21-2024 End: 08-20-2024 Lipid 1996 panel - Serum or Plasma LIPID PANEL BASIC Lab Routine Wellness examination Screening for lipid disorders Expected: 05/21/2024, Expires: 08/20/2024 [facility] Comment on above: Expected: 05/21/2024 , Expires: 08/20/2024 Start: 03-11-2024 Covid-19 Vaccine ( season) Covid-19 Vaccine ( season) [facility] Start: 03-11-2024 Covid-19 Vaccine ( season) Covid-19 Vaccine ( season) [facility] Start: 03-11-2024 Influenza vaccination Influenza Vacc ine (#1) [facility] Start: 03-11-2024 Influenza vaccinatio n given INFLUENZA VACCINE (#1) [facility] Start: 02-14-2024 End: 02-14-2024 Patient encounter procedure Orthopaedics Comment on above: Synovial cyst L knee. Start: 02-03-2024 End: 02-03-2024 Patient encounter procedure 02/03/2024 2:30 PM EDT Office Visit General Surgery [address] [place] [place] [address] Luis Armando Wharton MD [address] [place] [address] Synovial cyst of left popliteal space [M71.22] General Surgery Comment on above: Synovial cyst of lef t popliteal space [M71.22] Start: 07-11-2023 Advance Directive Discussion Advance Directive Discussion [facility] Start: 07-11-2023 Behavioral Health Screening Behavioral Health Screening [facility] Start: 03-11-2023 Covid-19 Vaccine ( season) Covid-19 Vaccine ( season) [facility] Start: 03-11-2023 Influenza vaccination INFLUENZA (#1) [facility] Start: 07-11-2022 ADVANCE DIRECTIVE DISCUSSION ADVANCE DIRECTIVE DISCUSSION [facility] Start: 07-11-2022 DEPRESSION ASSESSMENT DEPRESSION ASS ESSMENT [facility] Start: 04-14-2022 Colonoscopy COLONOSCOPY [facility] Start: 04-14-2022 COLORECTAL CANCER SCREENING COLORECTAL CANCER SCREENING [facility] Start: 04-14-2022 Screening for malign ant neoplasm of colon [facility] Start: 03-11-2022 Influenza vaccination INFLUENZ A (Season Ended) [facility] Start: 02-16-2022 Urine microalbumin profile [facility] Start: 11-17-2021 Adult depression screening assessment DEPRESSION SCREENING [facility] Start: 07-11-2021 ADVANCE DIRECTIVE DISCUSSION ADVANCE DIRECTIVE DISCUSSION [facility] Start: 09-10-2016 Fall risk assessment FALL RISK [facility] Start: 09-10-2016 Glaucoma screening GLAUCOMA/EY E EXAM AGE 65+ [facility] Start: 09-10-2016 Pneumococcal 23-uriel nt polysaccharide vaccination given (situation) PNEUMOCOCCAL VACCINE: 65+ YEARS (1 of 1 - PCV) [facility] Start: 2011 RSV Vaccine (1 - 1-d ose 60+ series) RSV Vaccine (1 - 1-dose 60+ series) [facility] Start: 09-10-2001 SHINGRIX VACCINE (1 of 2) SHINGRIX VACCINE (1 of 2) [facility] Start: 09-10-2001 Zoster vaccine hzv l tino for subcutaneous use ZOSTER (SHINGLES) VACCINE (1 of 2) [facility] Start: 09-10-1996 COLOGUARD (FIT-DNA) COLOGUARD (FIT-D NA) [facility] Start: 09-10-[address] COLONOGRAPHY [facility] Start: 09-10-1996 FECAL OCCULT BLOOD FECAL OCCULT BLOO D [facility] Start: 09-10-1996 Screening for malign ant neoplasm of colon [facility] Start: 09-10-1996 SIGMOIDOSCOPY SIGMOIDOSCOPY [facility] Start: 09-10-1986 Fasting lipid profile LIPID SCREENIN G [facility] Start: 09-10-1969 ANNUAL WELLNESS VISIT ANNUAL WELLNES S VISIT [facility] Start: 09-10-1969 Anxiety Screening Anxiety Screening [facility] Start: 09-10-1969 Depression Screening Depression Scre ening [facility] Start: 1963 Depression screening using PHQ-9 (Patient Health Questionnaire 9) score DEPRESSION SCREENING [facility] Start: 09-10-1962 Administration of diphtheria + tetanus + acellular pertussis vaccine DTAP/TDAP/TD VACCINE (1 - Tdap) [facility] Start: 09-10-1956 COVID-19 VACCINE (#1) COVID-19 VACCI NE (#1) [facility] Start: 03-13-1952 COVID-19 VACCINE (#1) COVID-19 VACCI NE (#1) [facility] Start: 1950 Hepatitis C screening HEPATITIS C SC REENING [facility] COLOGUARD COLOGUARD Lab Ro utine Screening for colon cancer Ordered: 05/31/2024 [facility] Work Phone: Comment on above: Ordered: 05/31/2024 End: 01-26-2025 US Lower extremity veins - bilateral US LEG VEIN DVT [facility] STAT Pain of left calf Swelling of calf 1 Occurrences starting 01/27/2024 until 01/26/2025 [facility] Work Phone: Comment on above: 1 Occurrences starti ng 01/27/2024 until 01/26/2025 End: 03-11-2025 XR Knee - left 4 Views XR KNEE GENERAL 4V AP BOTH/PA BOTH/LAT/MERC LEFT Radiology Routine Left knee pain, unspecified chronicity 1 Occurrences starting 02/10/2024 until 03/11/2025 [facility] Work Phone: Comment on above: 1 Occurrences starti ng 02/10/2024 until 03/11/2025 Immunizations Immunization Date Immunization Notes Care Provider Fa cility 03-29-2019 pneumococcal polysaccharide vaccine, 23 valent Stacey Karimi MD Work Phone: [facility] 02-28-2018 pneumococcal conjuga te vaccine, 13 valent Stacey Karimi MD Work Phone: [facility] 09-30-2016 influenza virus vacc ine, unspecified formulation Stacey Karimi MD Work Phone: [facility] 02-17-2012 tetanus toxoid, redu kristan diphtheria toxoid, and acellular pertussis vaccine, adsorbed Stacey Karimi MD Work Phone: [facility] 10-13-1959 Chicken Pox (disease) Stacey corbett MD Work Phone: [facility] Work Phone: Payers Date Payer Category Payer Self-pay 2024 Federal, State, Loca l (unspecified) [employer] [address] [place] [address] [id number] 2020 Unknown MMO MMO MEDICARE SUPPLEMENT [id number] 2020-Present [phone] [address] [place] [address] Indemnity [id number] 2020 Unknown MMO MMO MEDICARE SUPPLEMENT [id number] 2020-Present [phone] [address] [place] [address] Indemnity [id number] 2020 Medicare [id number] 2016 Medicare MEDICARE MEDICAR E A AND B [id number] 2016-Present [phone] [address] [address] [place] [address] Medicare [id number] 2016 Medicare MEDICARE MEDICAR E A AND B [id number] 2016-Present [phone] [address] [address] [place] [address] Medicare [id number] 2016 Medicare [id number] Unknown [id number] Unknown [id number] Unknown [id number] Unknown [id number] Unknown [id number] Unknown [id number] Unknown [id number] Unknown [id number] Unknown [id number] Unknown [id number] Unknown [id number] Social History Date Type Detail Facility Start: 02-17-2012 End: 02-25-2025 Tobacco smoking status NHIS Never smoked tobacco [facility] Work Phone: Start: 02-17-2012 End: 08-16-2024 Tobacco use and exposure Smokeless tobacco non-user [facility] Work Phone: Start: 11-18-2021 End: 08-16-2024 Alcohol intake Current non-drinker of alcohol (finding) [facility] Start: 1950 Sex Assigned At Not on file [facility] Start: 11-08-2021 End: 11-18-2021 Exposure to SARS-CoV-2 (event) Not sure [facility] Start: 01-27-2024 End: 08-16-2024 Gender identity Not on file [facility] Start: 01-27-2024 End: 08-16-2024 History of Social function [facility] Adult Depression Screening Assessment 0 [facility] How often to you hav e a drink containing alcohol? Never [facility] Start: 1950 Sex Assigned At Male [facility] Clinical Notes 11-18-2021 to 03-27-2025 Note Date & Type Note Facility 03-27-2025 Evaluation note Diagnosis Onset Date Resolution Abnormal EKG acute March 272024 10:26am [facility] Work Phone: 1(179) 738-491802-06-2025 Physician Note* Dept of Labor - Margaret [...] Genao called for review. See below: Pt "had an interesting EKG. He had a interesting 1-1 sinus - junctional ectopy rhythm which was prolonged but not persistent.. He had a rare PVC." Dr. Genao suggested pt have potential cardiac eval, pt declines. He was provided copies of testingperformed today to take to his PCP and follow up with, he declined for me to reach out to PCP. He wishes to do same. Pt was taken by lung clinic staff to xray dept for CXR and then D/C to home. [facility]02-06-2025 Miscellaneous Notes* Dept of Labor - Margaret [...] Genao called for review. See below: Pt "had an interesting EKG. He had a interesting 1-1 sinus - junctional ectopy rhythm which was prolonged but not persistent.. He had a rare PVC." Dr. Genao suggested pt have potential cardiac eval, pt declines. He was provided copies of testingperformed today to take to his PCP and follow up with, he declined for me to reach out to PCP. He wishes to do same. Pt was taken by lung clinic staff to xray dept for CXR and then D/C to home. [facility] Telephone encounter Note* Telephone Encounter - Salina Griffin MA - 07/05/2024 2:24 PM EST Tried to reach pt, VM not set up. Unable to leave message. Letter mailed to pt home of results. Salina Griffin MA [facility]12-26-2024 Miscellaneous Notes* Telephone Encounter - Salina Griffin [...] years. Stacey Karimi MD documented in this encounterPar[facility]12-26-2024 Telephone encounter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
--- NOTE | 2025-05-27 10:40 | CL.D_ITS ---
Patient Name: CRUZ PACKER Study Date: 05/27/2025 Performing: Francisco Álvarez MD Ht: 70 inches 177.8 cm : 1950 Wt: 134 lbs 60.78 kg Age: 74 Gender: male BSA: 1.76 PROCEDURE(S) PERFORMED DC01-(23743)LHC/COR/LV CLINICAL PROFILE AND INDICATIONS Indications: Cardiac Arrythmia Heart Failure: None Stress/Imaging Stress Echocardiogram: Yes Result: Positive Low RiskStress Echocardiogram: Positive Low Risk CAD Presentations: No Sxs, no angina. CONCLUSIONS Normal coronary arteries Normal LV size, wall motion,and systolic function RECOMMENDATIONS Medical therapy DESCRIPTION OF PROCEDURE The patient arrived to the procedure lab. The risks and benefits of the procedure as well as a full description of our services here and current unavailability of surgical backup were fully explained to the patient and/or their significant other prior to the catheterization. The Timeout was completed, verifying the correct patient and procedure. The patient's procedural site was prepped and draped in the usual fashion. Local anesthetic was given subcutaneously to right radial region with Lidocaine 2%. Using a modified Seldinger technique, arterial access was obtained via the right radial artery, a 6Fr sheath was inserted. Left Coronary Artery selective angiography was performed in multiple views using a 5 Fr. 4.0 [place] catheter. Right Coronary Artery selective angiography was then performed in multiple views using a 5 Fr. 4.0 [place] catheter. Left Ventriculography was performed in SALAZAR projection using a 5 Fr. Pigtail catheter. LV to AO pullback pressures were then recorded.The arterial sheath was pulled and a TR Band was applied for hemostasis 9 cc of air CORONARY ANGIOGRAPHY DOMINANCE: Right Dominant LEFT HEART ASSESSMENT Left Ventricular Ejection Fraction: by LV Gram 60 % Normal Left Ventricular systolic function Normal Left Ventricular systolic function LEFT MAIN: Angiographically normal LEFT ANTERIOR DESCENDING ARTERY: Angiographically normal CIRCUMFLEX ARTERY: Angiographically normal RIGHT CORONARY ARTERY: Angiographically normal VALVE FINDINGS: Mitral Valve Prolapse Mild COMPLICATIONS No Complications PROCEDURE MEDICATIONS Versed 1 mg IV Fentanyl 50 mcg IV Oxygen: 2 L/min via nasal cannula Heparin given IA 05/27/2025 10:10:41 SUMMARY OF HEMODYNAMIC DATA Time AIR REST ECG 08:47:08 AO 105/54 (77) SA 10:16:42 LV 153/16, 23 10:21:33 LV 134/16, 24 10:21:43 LV 143/23, 28 10:22:10 LV 140/22, 27 10:22:19 LVp 134/19, 25 10:22:31 AOp 145/78 (108) 10:22:38 10:36:11 Signed By Francisco Álvarez MD On 05/27/2025 10:39:34 Francisco Álvarez MD
== END 2025-05-27 12:50 | disposition home or self-care (01) ==
PROVIDERS: Referring Provider Internal Medicine Cardiovascular Disease; Visit Provider Internal Medicine Cardiovascular Disease
DX: I34.1 Nonrheumatic mitral (valve) prolapse (principal); I49.9 Cardiac arrhythmia, unspecified; R94.31 Abnormal electrocardiogram [ECG] [EKG]; R94.39 Abnormal result of other cardiovascular function study
CPT/HCPCS: 93458; 99152; 99153; Q9967; C1769; C1894